=== PATIENT | male | born 1930 | race Caucasian/White ===

== ENCOUNTER 2018-03-24 09:32 | Inpatient (IN) | payer MEDICARE, BC ==
[~2018-03-24] VITALS: Ht 188 cm; Wt 80.1 kg
[2018-03-24] VITALS (7 sets, daily range): BP systolic 96–187; BP diastolic 56–96; BMI 23.8; BMI 16.7
--- NOTE | ~2018-03-24 | HEMODYNAMI ---
PATIENT:CHRISTEL HOUSE MEDICAL RECORD: [id number] : 34 [facility] [id number] ADMISSION DATE: 03/24/18 Generatedon:03/26/201812:27 Patient name: CHRISTEL HOUSE Patient #: [id number] SSN: : [id number] Date of study: 03/26/2018 Page: Of Hemodynamic Procedure Report Patient Data Patient Demographics Procedure consent was obtained First Name: CHRISTEL Gender: Male Last Name: LACY : 1930 [facility] Initial: C Age: 88 year(s) Patient #: [id number] Race: Unknown Additional ID: [id number] Contact details Address: [facility] State: [place] City: [place] Zip code: [address] Past Medical History Allergies: No known allergies Admission Admission Data Admission Date: 03/24/2018 Admission Time: 13:56 Room #: D.2115 Procedure Procedure Types Cath Procedure Diagnostic Procedure LHC LHC w/Coronaries w/Grafts FFR/IVUS Intra-Coronary IVUS Initial PCI Procedure Coronary Stent Coronary Stent Initial Procedure Description Procedure Date Procedure Date: 03/26/2018 Procedure Start Time: 12:09 Procedure End Time: 12:25 Procedure Staff Name Function Ronnie Stevens MD Performing Physician Vasyl Caputo RT Monitor Belinda New RN Nurse Rj Jane RT Scrub Louis Villagran RN Treating Engineer Helper Procedure Data Cath Procedure Fluoroscopy Diagnostic fluoroscopy Total fluoroscopy Time: 4.2 time: 4.2 min min Diagnostic fluoroscopy Total fluoroscopy dose: 433 dose: 433 mGy mGy Contrast Material Contrast Material Type Amount (ml) Isovue 300 154 Entry Location Entry Primary Successful Side Size Upsize Upsize Entry Closure Succes sful Closure Location (Fr) 1 (Fr) 2 (Fr) Remarks Device Remarks Femoral Right 5 Fr 6 Fr Exoseal artery Short Diagnostic catheters Device Type Used For End Catheter Placement MULTIPACK Pigtail 5 Fr LV Angiography catheter MULTIPACK JL 4.0 5Fr Left Coronary catheter Angiography MULTIPACK 3DRC 5Fr Right Coronary catheter Angiography DIAGNOSTIC AR MOD 5Fr Right Coronary Catheter ([id number]) Angiography Procedure Complications No complications Procedure Medications Medication Administration Route Dosage Versed I.V. 2 mg Fentanyl I.V. 50 mcg 0.9% NaCl I.V. 100 ml/hr Oxygen etCO2 Nasal cannula 2 l/min Lidocaine 2% added to field 20 Heparin Flush Bag added to field 2 bags (1000units/500ml NS) Heparin Bolus I.V. 4000 units Integrilin (Bolus I.V. 7.3 ml 2mg/ml) Plavix P.O. 600 mg Versed I.V. 2 mg Hemodynamics Rest Heart Rate: 92 (bpm) Snapshots Pre Cath Intra NCS Post Cath Vital Signs Time Heart Resp SPO2 etCO2 NIBP (mmHg) Rhythm Pain Sedation Rate (ipm) (%) (mmHg) Status Level (bpm) 11:57:08 91 20 93 26 126/81(101) A-Fib 0 (11) 10(A) , No pain 12:01:18 93 15 94 30 120/70(89) A-Fib 0 (11) 10(A) , No pain 12:06:41 96 22 97 30 110/75(95) A-Fib 0 (11) 10(A) , No pain 12:10:37 98 20 98 34.6 124/84(91) A-Fib 0 (11) 10(A) , No pain 12:14:39 87 16 97 24.5 120/72(100) A-Fib 0 (11) 9(A) , No pain 12:18:42 103 15 97 29.3 108/71(94) A-Fib 0 (11) 9(A) , No pain 12:23:15 106 21 98 32.4 101/70(92) A-Fib 0 (11) 10(A) , No pain Medications Time Medication Route Dose Verified Delivered Reason Notes Effectiveness by by 12:04:17 Versed I.V. 2 mg Ronnie Belinda for sedation Hilda New RN 12:04:28 Fentanyl I.V. 50 Ronnie Belinda for sedation mcg Hilda New RN 12:10:17 Versed I.V. 2 mg Ronnie Belinda for sedation Hilda New RN 12:12:53 0.9% NaCl I.V. 100 Ronnie Belinda used for ml/hr Hilda New director of payroll 12:13:05 Oxygen etCO2 2 Ronnie Belinda used for Nasal l/min Hilda New procedure cannula RN 12:15:19 Lidocaine 2% added 20ml Ronnie Ronnie for local to vial Hilda Stevens MD anesthetic field 12:15:25 Heparin Flush added 2 Ronnie Ronnie used for Bag to bags Hilda Stevens MD procedure (1000units/500ml field NS) 12:18:57 Heparin Bolus I.V. 4000 Ronnie Belinda for verif ied units Hilda New anticoagulation with Dr. INGE Stevens 12:19:24 Integrilin I.V. 7.3 Ronnie Belinda used for waste d (Bolus 2mg/ml) ml Hilda New procedure 2.7mL RN 12:19:39 Plavix P.O. 600 Ronnie Belinda for mg Hilda New antiplatelet RN therapy Procedure Log Time Note 11:25:48 Louis Villagran RN sent for patient. Start room use. 11:37:49 Time tracking: Regular hours (M-F 7:00 - 5:00) 11:37:54 Plan of Care:Hemodynamics will remain stable., Cardiac rhythm will remain stable., Comfort level will be maintained., Respiratory function will remain adequate., Patient/ family verbilizes understanding of procedure., Procedure tolerated without complication., Recovers from procedure without complications.. 11:46:45 Patient received from Med II to CCL 3 Alert and oriented. Tansferred to table in Supine position. 11:46:47 Warm blankets applied, and fauzia hugger turned on for patient comfort. 11:46:47 Correct patient and procedure confirmed by team. 11:46:49 Signed procedure consent form obtained from patient. 11:46:49 ECG and BP/O2 sat monitors applied to patient. 11:56:12 Vital chart was started 12:02:58 Baseline sample Acquired. 12:03:01 Rhythm: sinus rhythm 12:03:02 Full Disclosure recording started 12:03:06 H&P Date Dictated: 03/26/2018 Within 30 days and on chart.. 12:03:07 Pre-procedure instructions explained to patient. 12:03:07 Pre-op teaching completed and patient verbalized understanding. 12:03:17 Family unavailable. 12:03:22 Patient NPO since Midnight. 12:03:30 Patient allergic to No known allergies 12:03:32 Is the patient allergic to Iodine/contrast media? No. 12:03:51 Is patient on blood thinner?Yes 12:03:56 Patient diabetic? Yes. 12:03:57 If diabetic: On Metformin? Yes 12:04:00 If on Metformin: Last Dose? 03/24/2018 12:04:02 ----Pre-sedation anethsthesia assessment.---- 12:04:04 Previous problem with sedation/anesthesia? No ? 12:04:06 Snore? Yes 12:04:08 Sleep apnea? No 12:04:10 Deviated septum? No 12:04:11 Opens mouth fully? Yes 12:04:13 Sticks out tongue? Yes 12:04:15 Airway obstruction? No ? 12:04:17 Versed 2 mg I.V. was administered by Belinda New RN; for sedation; 12:04:17 Dentures? No ? 12:04:20 Pre procedure: right dorsailis pedis pulse 2+ Normal; easily identifiable; not easily obliterated 12:04:25 Patient pain scale 0/10 ?. 12:04:28 Fentanyl 50 mcg I.V. was administered by Belinda New RN; for sedation; 12:04:28 IV patent on arrival in left antecubital with 0.9% NaCl at 10ml/hr. 12:04:33 Lab results completed and on chart. 12:04:36 Right groin area was prepped with chlora-prep and draped in sterile fashion 12:04:37 Alarms reviewed by R. N. 12:04:37 Sharps counted by scrub and verified by R.N. 12:04:38 Physician arrived 12:04:39 --------ALL STOP TIME OUT------ 12:04:39 Final Timeout: patient, procedure, and site verified with staff and physician. All members of the team are in agreement. 12:04:41 Right groin site verified by team. 12:04:45 Fire Safety Assessment: A--An alcohol-based skin anteseptic being used preoperatively., C--Open oxygen or nitrous oxide is being used., D--An ESU, laser, or fiber-optic light is being used. 12:04:48 Physical assessment completed. ASA score P 2 - A patient with mild systemic disease as per Ronnie Stevens MD. 12:04:52 Sedation plan: IV Moderate Sedation Medication:Versed, Fentanyl 12:04:56 Use device set Femoral Dx 12:04:57 ACIST Syringe (49641) opened to sterile field. 12:04:58 Bag Decanter (2002S) opened to sterile field. 12:04:58 Medline Cath Pack ([id number]) opened to sterile field. 12:04:59 DIAGNOSTIC WIRE .035 260cm J wire (919392) opened to sterile field. 12:05:00 ACIST Hand Control (91908) opened to sterile field. 12:05:01 ACIST Manifold (16675) opened to sterile field. 12:05:01 DIAGNOSTIC Multipack 5Fr catheter set (OM2235) opened to sterile field. 12:05:01 Tegaderm 4 x 4 (1626W) opened to sterile field. 12:05:04 SHEATH 5FR [place] (EKG607) opened to sterile field. 12:07:44 Procedure started. 12:09:14 Zero performed for pressure channel P1 12:09:18 Zero performed for pressure channel P1 12:09:23 Zero performed for pressure channel P1 12:09:35 Local anesthetic to right femoral artery with Lidocaine 2% by Ronnie Stevens MD.INITIAL ACCESS ONLY 12:09:43 A 5 Fr sheath was inserted into the Right Femoral artery 12:09:49 A MULTIPACK Pigtail 5 Fr catheter was advanced over the wire and used for LV Angiography. 12:09:52 LV angiography performed. 12:09:54 LV gram done using COSTELLO 12:09:55 LV hemodynamics recorded. 12:10:03 EF : 20 % 12:10:05 Catheter removed. 12:10:07 Zero performed for pressure channel P1 12:10:16 A MULTIPACK JL 4.0 5Fr catheter was advanced over the wire and used for Left Coronary Angiography. 12:10:17 Versed 2 mg I.V. was administered by Belinda New RN; for sedation; 12:10:21 LCA angiography performed. 12:10:59 Catheter removed. 12:11:31 A MULTIPACK 3DRC 5Fr catheter was advanced over the wire and used for Right Coronary Angiography. 12:11:33 Zero performed for pressure channel P1 12:11:44 RCA angiography performed. 12:11:48 Catheter removed. 12:11:58 Procedure type changed to Cath procedure, Diagnostic procedure, LHC, LHC w/Coronaries w/Grafts, FFR/IVUS, Intra-Coronary IVUS Initial, PCI procedure, Coronary Stent, Coronary Stent Initial 12:12:53 0.9% NaCl 100 ml/hr I.V. was administered by Belinda New RN; used for procedure; 12:13:05 Oxygen 2 l/min etCO2 Nasal cannula was administered by Belinda New RN; used for procedure; 12:14:00 A DIAGNOSTIC AR MOD 5Fr Catheter ([id number]) was advanced over the wire and used for Right Coronary Angiography. 12:14:04 RCA angiography performed. 12:14:14 SVG to Circ angiography performed. 12:14:55 SVG to RCA angiography performed. 12:15:19 Lidocaine 2% 20ml vial added to field was administered by Ronnie Stevens MD; for local anesthetic; 12:15:25 Heparin Flush Bag (1000units/500ml NS) 2 bags added to field was administered by Ronnie Stevens MD; used for procedure; 12:16:01 GUIDE 6FR XBLAD 4.0 catheter ([id number]) opened to sterile field. 12:16:15 Sheath upsized to a 6 Fr Short. 12:16:27 6 Fr XBLAD 4 guide catheter was inserted over the wire 12:16:39 CPTES wire advanced. 12:16:44 FFR/IVUS 12:16:44 FFR/IVUS 12:16:45 IVUS catheter advanced over wire. 12:16:46 IVUS pass to LAD lesion performed. 12:18:57 Heparin Bolus 4000 units I.V. was administered by Belinda New RN; for anticoagulation; verified with Dr. Stevens 12:19:24 Integrilin (Bolus 2mg/ml) 7.3 ml I.V. was administered by Belinda New RN; used for procedure; wasted 2.7mL 12:19:39 Plavix 600 mg P.O. was administered by Belinda New RN; for antiplatelet therapy; 12:20:25 IVUS catheter removed over wire. 12:21:40 Place stent Inflation Number: 1 A INTEGRITY RX 3.5 x 30 stent ([id number]) was prepped and advanced across the Mid LAD. The stent was deployed at 17 TEA for 0:10 (min:sec). 12:21:43 [place] Dundee Eagleye IVUS Catheter (05770Z) opened to sterile field. 12:21:46 SHEATH 6FR [place] (SFG052) opened to sterile field. 12:21:46 INFLATOR Merit BasixCompak (UD0558) opened to sterile field. 12:21:46 CHOICE PT Extra Support 182cm wire ([id number]) opened to sterile field. 12:21:53 EXOSEAL 6Fr (EX600) opened to sterile field. 12:22:58 Stent catheter was removed intact over wire. 12:22:59 Wire removed. 12:22:59 Guide catheter removed. 12:23:06 Sheath removed intact; hemostasis achieved with Exoseal to the Right Femoral artery. 12:23:08 Procedure ended.(Physican Out) 12:23:19 Fluoroscopy time 04.20 minutes. 12:23:26 Fluoroscopy dose: 433 mGy 12:23:26 Flurop Dose total: 433 12:23:34 Contrast amount:Isovue 300 154ml. 12:23:36 Sharps counted by scrub and verified by R.N. 12:23:37 Insertion/operative site no bleeding no hematoma. 12:23:40 Post-op/insertion site Right Femoral artery dressed using a 4 x 4 and Tegaderm. 12:23:43 Post right femoral artery:stable 12:23:55 Post Procedure Pulses reassessed and unchanged 12:24:05 Post procedure rhythm: sinus rhythm 12:24:07 Post procedure instruction explained to patient.Patient verbalizes understanding. 12:24:08 Procedure and supply charges have been captured, reviewed, submitted and are correct. 12:24:13 Procedure Complication : No complications 12:25:12 Vital chart was stopped 12:25:14 See physician's report for complete and final results. 12:25:32 Report given to PCU. 12:25:36 Patient transfered to PCU with Bed. 12::41 Procedure ended. 12:: Full Disclosure recording stopped 12:25:44 End room use (Document Last) Intervention Summary Intervention Notes Time ActionType Lesion and Equipment Action# Pressure Duration Attributes Used 12:21:40 Place stent Mid LAD INTEGRITY RX 1 17 00:10 3.5 x 30 stent ([id number]) Device Usage Item Name Manufacture Quantity Catalog Number Hospital Part Current Mini mal Lot# / Charge Number Stock Stock Serial# Code ACIST Acist 1 80099 956062 684989 490305 20 Syringe Medical (23992) Systems Inc Bag Decanter Microtek 1 799339 69595 949653 5 () Medical Inc. Medline Cath Medline 1 [id number] 544864 80348 565187 5 Pack ([id number]) DIAGNOSTIC St Chirag 1 454952 746939 608110 605564 30 WIRE .035 260cm J wire (111034) ACIST Hand Acist 1 36878 424533 414204 527624 5 Control Medical (43873) Systems Inc ACIST Acist 1 09313 412749 809467 928250 5 Manifold Medical (33054) Systems Inc DIAGNOSTIC Cardinal 1 HK8444 909055 30967 491133 30 Multipack Health 5Fr catheter set (ZU7667) Tegaderm 4 x 3M 1 1626W 610320 264450 600857 5 4 (1626W) SHEATH 5FR Terumo 1 UEV894 056782 446027 089961 5 [place] (BWJ917) MULTIPACK Cardinal 1 833299 5 Pigtail 5 Fr Health catheter MULTIPACK JL Cardinal 1 412579 5 4.0 5Fr Health catheter MULTIPACK Cardinal 1 272603 5 3DRC 5Fr Health catheter DIAGNOSTIC Cardinal 1 161327N 302487 544599 545284 15 AR MOD 5Fr Health Catheter (266884Q) GUIDE 6FR Cardinal 1 [id number] 710026 306198 203343 3 XBLAD 4.0 Health catheter (28061996) INTEGRITY RX Medtronic 1 [id number] 261812 263628 938962 5 [id number] 3.5 x 30 stent ([id number]) [place] 1 03745N 324620 003982 956599 8 [place] Eagleye IVUS Catheter (01645C) SHEATH 6FR Terumo 1 RNT062 515285 100123 509421 40 [place] (QVG427) INFLATOR Merit 1 WK6421 224749 698477 349853 15 [facility] Medical BasixCompak (LS2034) CHOICE PT [place] 1 [id number] 410369 372144 598763 5 Extra Scientific Support 182cm wire ([id number]) EXOSEAL 6Fr Cardinal 1 EX600 821650 866281 768792 10 (EX600) Health Signature Audit [place] Stage Time Signature Unsigned Intra-Procedure 03/26/2018 Vasyl Caputo RT(R) 12:27:33 PM Signatures Monitor : Vasyl Caputo RT Signature : Date : Time : [id number] [place] [address]
[~2018-03-24 09:32] MED LIST: ACETAMINOPHEN500 M1 PO; BAYER CHEWABLE81 MG PO; COREG6.25 MG PO; COUMADIN4 MG PO; FELDENE20 MG PO; JANTOVEN2 MG PO; K-TAB10 MEQ PO; LANOXIN125 MCG PO; LASIX40 MG PO; LEVAQUIN500 MG PO; VITAMIN B COMPL1 TAB PO; VITAMIN D5000 UNIT PO; ZYRTEC10 MG PO
--- NOTE | 2018-03-24 09:40 | NUR ---
PATIENT PLACED IN GOWN, CALL LIGHT WITHIN REACH, BEDSIDE TABLE WITHIN REACH. PLACED ON BECK OPERATOR AND OXYGEN 2/L/NC FOR A SAT OF 93%. PATIENT IS A WAKE AND ALERT, RESPIRATIONS ARE MILDLY LABORED WITH PURSED LIP BREATHING. COLOR IS WNL FOR RACE. GIVEN MULTIPLE WARM BLAKETS. NO OTHER NEEDS NOTED. UPDATED ON DENISE OF CARE AND DELAYS IN CARE. WILL CONTINUE TO MONITOR.
[2018-03-24] MEDS ORDERED: PRESERVISION PO (09:43)
[2018-03-24] MEDS ORDERED: PROBIOTIC BLEN1 EACH (09:43)
[2018-03-24] MEDS ORDERED: ALPHA LIPOIC ACID PO (09:44)
[2018-03-24] MEDS ORDERED: COREG 3.1253.125 MG PO (09:45)
--- NOTE | 2018-03-24 09:48 | NUR ---
FRIEND AT BEDSIDE. PATIENT STATES HIS WAS PLACED IN AN INPATIENT FACILITY RECENTLY AND HAS BEEN LIVING ALONE. HE DOES NOT HAVE A PCP.
[2018-03-24 10:11] LABS: BASOPHILS 0.7 % (0-2); HEMATOCRIT 48.3 % (42.0-54.0); HEMOGLOBIN 16.2 g/dL (13.5-17.5); IMMATURE GRANULOCYTES 0.1 % (0-5); LYMPHOCYTES 17.7 % (15-50); MCH 30.2 pg (26.0-34.0); MCHC 33.5 g/dL (31.0-37.0); MCV 89.9 fL (80.0-100.0); MEAN PLATELET VOLUME 11.2 fL (7.4-10.4); NEUTROPHILS 71.5 % (40-80); PLATELET COUNT 179 10x3/uL (130-400); RBC 5.37 10x6/uL (4.20-6.10); RDW 16.7 % (11.5-14.5); WBC 8.8 10x3/uL (4.8-10.8)
[2018-03-24 10:15] LABS: INR 1.19 (0.85-1.17); PROTIME 14.6 SECONDS (11.6-15.0)
[2018-03-24 10:16] LABS: D-DIMER-QUANTITATIVE 1.74 ug/mLFEU (0.20-0.54)
--- NOTE | 2018-03-24 10:30 | NUR ---
PATIENT UNABLE TO URINATE IN URINAL AND REQUESTING TO GO TO THE RESTROOM FOR BM. ASSISTED PATIENT TO RESTROOM.
[2018-03-24 10:33] LABS: ALBUMIN 3.5 g/dL (3.4-5.0); ANION GAP 11.7 mmol/L (8-16); BILIRUBIN - TOTAL 1.23 mg/dL (0.2-1.3); CALCIUM 9.1 mg/dL (8.5-10.1); CARBON DIOXIDE 28.7 mmol/L (21.0-32.0); CREATININE - SERUM 1.2 mg/dL (0.6-1.3); POTASSIUM - SERUM 4.4 mmol/L (3.5-5.1); PROTEIN - SERUM 7.1 g/dL (6.4-8.2)
[2018-03-24 10:50] LABS: TROPONIN-I 0.068 ng/mL (0.000-0.060)
--- NOTE | 2018-03-24 10:51 | NUR ---
ELEVATED TROPONIN CALLED BY [employer], RESULT 0.068. EDM NOTIFIED.
--- NOTE | 2018-03-24 11:30 | NUR ---
PATIENT IS AWAKE AND ALERT, RESPIRATIONS EVEN AND UNLABORED. NO NEEDS NOTED. UPDATED ON PLAN OF CARE AND DELAYS IN CARE. WILL CONTINUE TO MONITOR.
--- NOTE | 2018-03-24 12:02 | NUR ---
PATIENT ASSISTED TO RESTROOM FOR BM. STATES WHEN HE WENT TO THE RESTROOM EARLIER, HE URINATED "A BUNCH." PATIENT GIVEN A BEDSIDE URINAL TO COLLECT URINE. UPDATED ON PLAN OF CARE AND DELAYS IN CARE. WILL CONTINUE TO MONITOR.
--- NOTE | 2018-03-24 12:16 | NUR ---
PATIENT TO CT VIA STRETCHER.
--- NOTE | 2018-03-24 13:35 | NUR ---
URINE OUTPUT 1500 MLS.
--- NOTE | 2018-03-24 14:30 | NUR ---
PATIENT TO RESTROOM. NO NEEDS NOTED. UPDATED ON PLAN OF CARE AND DELAYS IN CARE.
--- NOTE | 2018-03-24 18:17 | NUR ---
SCDS APPLIED TO BILATERAL LOWER EXTREMITIES.
--- NOTE | 2018-03-24 18:18 | NUR ---
16 FR RANDOLPH CATHETER INSERTED VIA STERILE TECHNIQUE. 350ML CLEAR YELLOW URINE RECEIVED UPON INSERTION OF RANDOLPH CATHETER. URINE TO DRAINAGE BAG VIA GRAVITY. PATIENT TOLERATED INSERTION OF RANDOLPH CATHETER WELL. ATTEMPTED TO SECURE RANDOLPH WITH STAT LOCK, RANDOLPH WILL NOT FIT IN STAT LOCK. CHARGE NURSE NOTIFIED AND WILL RETREIVE DIFFERENT STAT LOCK. CALL LIGHT WITHIN REACH. BED IN LOW POSITION. CALL LIGHT WITHIN REACH. CONSUMIN PM MEAL AT THIS TIME.
--- NOTE | 2018-03-24 18:56 | NUR ---
RECIEVED UP IN BED WITH EYES OPEN AND TV IN. ALERT AND ORIENTED X4. F/C INTAQCT WITH CLEAR YELLOW URINE DRAINING TO BEDSIDE DRAINAGE BAG. DENIES ANY NEEDS AT THIS TIME.
--- NOTE | 2018-03-24 22:54 | NUR ---
REFUSES FOEY CATH. TOLD SUEDING AND BUFFING MACHINE OPERATOR THAT HE WAS GOING TO PULL IT OUT HIMSELF. D/C'D RANDOLPH WITH SMALL BLOOD CLOTS IN TUBING. PT HAD BEEN YELLING OUT FOR SOMEONE TO HELP HIM. AND FOR SOMEONE TO DO SOMETHING. UNABLE TO REDIRECT TO THE NEED FOR THE F/C. ASKED HIM TO PLEASE USE THE URINAL AND NOT TO GET UP. BEDSIDE COMMODE IN PLACE. PT GAVE VERBAL AGREEMENT TO NOT GET UP AND USE URINAL.
--- NOTE | 2018-03-25 01:20 | NUR ---
PULLED HEART MONITOR OFF AND DISCONNECTED DOBUTAMINE DRIP AND PLACE IV LINE IN URINAL. STATED "I'M LEAVING AND YOU CANT STOP ME". EXPLAINED THAT HE WOULD HAVE TO SIGN AMA. PT AGREED. NOTIFIED DR. BANEGAS AND DR. DIAZ. UNABLE TO REACH FRIEND TO PICK HIM UP. FINALLY HE CALMED DOWN AND ALLOWED IV TO BE RECONNECTED WITH NEW TUBING AND TELEMETRY MONITER PUT BACK ON. STATED "I'LL STAY AND YOU CAN HOOK ME BACK UP". APOLIGIZED FOR BEING UPSET.
[2018-03-25 05:02] VITALS: BP 129/63
--- NOTE | 2018-03-25 06:03 | NUR ---
PLEASANT AND COOPERATIVE THIS MORNING. SMILING AND TALKATIVE. DENIES ANY PAIN OR NEEDS AT THIS TIME. CONTINUES TO USE URINAL.
[2018-03-25 06:07] LABS: BASOPHILS 0.6 % (0-2); EOSINOPHILS 1.3 % (0-7); HEMATOCRIT 41.5 % (42.0-54.0); HEMOGLOBIN 13.7 g/dL (13.5-17.5); IMMATURE GRANULOCYTES 0.1 % (0-5); LYMPHOCYTES 17.4 % (15-50); MCH 29.4 pg (26.0-34.0); MCV 89.1 fL (80.0-100.0); MEAN PLATELET VOLUME 11.8 fL (7.4-10.4); MONOCYTES 10.5 % (2-11); NEUTROPHILS 70.1 % (40-80); PLATELET COUNT 147 10x3/uL (130-400); RBC 4.66 10x6/uL (4.20-6.10); RDW 16.7 % (11.5-14.5)
[2018-03-25 06:29] LABS: ANION GAP 13.7 mmol/L (8-16); CARBON DIOXIDE 27.1 mmol/L (21.0-32.0); CREATININE - SERUM 1.1 mg/dL (0.6-1.3); POTASSIUM - SERUM 3.8 mmol/L (3.5-5.1)
[2018-03-25 06:45] LABS: INR 1.31 (0.85-1.17); PROTIME 15.7 SECONDS (11.6-15.0)
[2018-03-25 07:03] VITALS: BP 107/82
--- NOTE | 2018-03-25 07:30 | NUR ---
RECEIVED PT IN BED AAOX4 RESP UNLABORED DEINIES ANY NEEDS OR DISCOMFORT AT THIS TIME
[2018-03-25 12:34] VITALS: BMI 23.7
[2018-03-25 12:53] VITALS: BP 121/77
--- NOTE | 2018-03-25 17:15 | NUR ---
FAWN PT'S IV IN A URINAL DISCONNECTED FROM IV SITE PT STATED HE TOOK IT LOOSE BECAUSE HE WANTED IT LOOSE CHANGE OUT TUBING AND FLUIDS PT REFUSED TO HAVE IT RECONNECTED
[2018-03-25 17:47] VITALS: BP 113/63
--- NOTE | 2018-03-25 19:12 | NUR ---
RECIEVED UP IN BED WITH EYES OPEN. REPORTED BY OFF GOING PT REFUSING IV. SPOKE WITH PT ATTEMPTING TO EDUCATE ON NEED FOR MEICATION UNSUCESSFUL. IV TO LEFT FA SL.. PACEMAKER TO LEFT CHEST. TELEMETRY IN PLACE. WILL CONT. POC.
--- NOTE | 2018-03-25 19:56 | NUR ---
PULLED TELEMETRY OFF AND REFUSES TO PUT IT BACK ON.
[2018-03-25 21:03] VITALS: BP 115/59
[2018-03-26 01:03] VITALS: BP 110/74
[2018-03-26 06:21] VITALS: BP 129/75
[2018-03-26 06:49] LABS: INR 1.24 (0.85-1.17)
[2018-03-26 06:53] LABS: BASOPHILS 0.3 % (0-2); EOSINOPHILS 0.8 % (0-7); HEMATOCRIT 45.2 % (42.0-54.0); HEMOGLOBIN 14.9 g/dL (13.5-17.5); IMMATURE GRANULOCYTES 0.2 % (0-5); LYMPHOCYTES 9.8 % (15-50); MCH 29.9 pg (26.0-34.0); MCV 90.6 fL (80.0-100.0); MEAN PLATELET VOLUME 11.9 fL (7.4-10.4); MONOCYTES 9.9 % (2-11); PLATELET COUNT 161 10x3/uL (130-400); RBC 4.99 10x6/uL (4.20-6.10); RDW 16.7 % (11.5-14.5)
[2018-03-26 06:54] LABS: ANION GAP 11.4 mmol/L (8-16); CALCIUM 9.1 mg/dL (8.5-10.1); CREATININE - SERUM 1.2 mg/dL (0.6-1.3); POTASSIUM - SERUM 3.5 mmol/L (3.5-5.1)
[2018-03-26 06:58] LABS: CARBON DIOXIDE 34.1 mmol/L (21.0-32.0)
[2018-03-26 07:08] LABS: WBC 11.1 10x3/uL (4.8-10.8)
--- NOTE | 2018-03-26 07:30 | NUR ---
PT VERY ARGUMENTIVE THIS MORNING REFUSING DOBUTAMINE GTT SAYS HE IS GOING HOME REFUSES TO GET IN A GOWN TO GO TO [facility] STATES THEY CAN HELP ME UNDRESS WHEN I GET OVER THERE. RESP UNLABORED SKIN W/D PALE IN COLOR LFA SALINE LOCK INTACT SITE WITHOUT REDNESS OR EDEMA WILL CONTINUE TO MONITOR
[2018-03-26 09:06] VITALS: BP 123/79
--- NOTE | 2018-03-26 10:30 | NUR ---
PT FOUND IN FLOOR LYING ON BACK ASSISTED BACK TO BED ABRASION NOTED TO RT KNEE CLEANSED WITH WOUND CLEANSER AND APPLIED DRY DRSG RT ELBOW WITH ABRASION CLEANSED WITH WOUND CLEANSE AND APPLIED DRG DRSG C/O OF PAIN TO RT ELBOW B/P 133/77 P 96 R 18 O2 98% PANFILO BROWN APN WITH DR WEIR NOTIFIED NEW ORDERS RECEIVED
--- NOTE | 2018-03-26 12:15 | NUR ---
PT TO WATER SOFTENER SERVICE SUPERVISOR VIA BED
--- NOTE | 2018-03-26 13:00 | NUR ---
RECEIVED PT BACK TO ROOM VIA BED SEDATED VSS PPPX2 DRSG C/D/I
[2018-03-26 13:06] VITALS: BP 133/77
[2018-03-26 19:11] VITALS: BP 132/75
--- NOTE | 2018-03-26 19:14 | NUR ---
RECIEVED LAYING IN BED WITH EYES CLOSED. AROUSES WITH VERBAL STIMULI. F/C PLACED PER ORDERS WITH SMALL AMT OF BLOODY URINE. PLEASANT AND TALKATIVE. IV TO LEFT FA SL.. LUNG SOUNDS CRACKLESW AND RALES BILAT. CONT TO REFUSE LASIX PER OFFGOING . WILL CONT. TO OBSERVE.
--- NOTE | 2018-03-26 20:11 | NUR ---
PT BECAME MORE LETHARGIC AND O2 SAT 86%. PT PULLS O2 OFF FREQUENTLY. NOTIFIED DR. DUFF WITH NEW ORDER FOR 80MG LASIX IV X 1 NOW AND HOLD 2200 DOSE. CXR..LASIX GIVEN AND INITIAL IV INFILTRATED RESTARTED BY MARIA E BOUCHER AND LASIX GIVEN IN NEW SITE TO LA. SON HERE EARLIER AND STATED " HE'S BEEN LIKE THIS ALL MY LIFE AAND I CANT TAKE THIS" SON LEFT AND GAVE THIS NURSE HIS NUMBER IN CASE OF ANY CHANGES. WILL OBSERVE OUTPUT.
[2018-03-26 22:27] VITALS: BP 101/61
[2018-03-27] VITALS (24 sets, daily range): BP systolic 76–113; BP diastolic 48–71; Ht 188 cm; Wt 80.1 kg
--- NOTE | 2018-03-27 00:53 | NUR ---
PT B/P REPORTED 85/49, PULSE 109 REP. 31 O2 SAT 83% ON [address] DUFF NOTIFIED AND GAVE NEW ORDERS TO TRANSFER TO UNIT, PULMOLOGIST CONSULT AND START DOBUTAMINE DRIP IN ICU.
--- NOTE | 2018-03-27 00:55 | NUR ---
REPORT GIVEN TO ICU NURSE AND PT TRANSFERED TO 2310.
[2018-03-27 00:59] LABS: ANION GAP 13.8 mmol/L (8-16); CARBON DIOXIDE 29.3 mmol/L (21.0-32.0); CREATININE - SERUM 1.8 mg/dL (0.6-1.3); MAGNESIUM - SERUM 1.6 mg/dL (1.8-2.4); POTASSIUM - SERUM 4.1 mmol/L (3.5-5.1)
--- NOTE | 2018-03-27 01:00 | NUR ---
RECEIVED PT FROM FLOOR. PT ATTACHED TO MONITORS. ORDERS COMPLETED. PT PLACED ON BIPAP PER ORDERS. NO SIGNS OF ACUTE DISTRESS. WILL CONTINUE TO MONITOR.
--- NOTE | 2018-03-27 02:00 | NUR ---
PAGED DR DUFF REGARDING PT'S LOW BP. DOES NOT WANT TO TREAT ANY FURTHER AT THIS TIME. NO FURTHER NEEDS NOTED. NO SIGNS OF ACUTE DISTRESS. WILL CONTINUE TO MONITOR.
--- NOTE | 2018-03-27 03:05 | NUR ---
REASSESSMENT COMPLETED, SEE FLOWSHEET. NO ACUTE CHANGES NOTED AT THIS TIME. NO SIGNS OF ACUTE DISTRESS. BP STILL REMAINS ON THE LOW SIDE, CURRENT BP IS 91/50. WILL CONTINUE TO MONITOR CLOSELY.
[2018-03-27 04:47] LABS: BASOPHILS 0.1 % (0-2); EOSINOPHILS 0 % (0-7); HEMATOCRIT 43.3 % (42.0-54.0); IMMATURE GRANULOCYTES 0.2 % (0-5); LYMPHOCYTES 4.3 % (15-50); MCH 29.6 pg (26.0-34.0); MCHC 32.3 g/dL (31.0-37.0); MCV 91.5 fL (80.0-100.0); MEAN PLATELET VOLUME 11.7 fL (7.4-10.4); MONOCYTES 5.9 % (2-11); NEUTROPHILS 89.5 % (40-80); RBC 4.73 10x6/uL (4.20-6.10); RDW 16.8 % (11.5-14.5)
[2018-03-27 04:56] LABS: ANION GAP 12.2 mmol/L (8-16); CALCIUM 8.6 mg/dL (8.5-10.1); CARBON DIOXIDE 33.5 mmol/L (21.0-32.0); CREATININE - SERUM 1.6 mg/dL (0.6-1.3); POTASSIUM - SERUM 3.7 mmol/L (3.5-5.1)
[2018-03-27 04:57] LABS: PLATELET COUNT 124 10x3/uL (130-400); WBC 14.2 10x3/uL (4.8-10.8)
[2018-03-27 05:03] LABS: INR 1.47 (0.85-1.17); PROTIME 17.3 SECONDS (11.6-15.0)
--- NOTE | 2018-03-27 05:05 | NUR ---
PT IS RESTING IN BED ON THE BIPAP. NO ACUTE CHANGES NOTED. NO SIGNS OF ACUTE DISTRESS. WILL CONTINUE TO MONITOR.
--- NOTE | 2018-03-27 07:06 | NUR ---
REPORT RECEIVED. ASSESSMENT COMPLETE PER FLOW SHEET. VSS. NO NEW CHANGES WILL CONTNIUE TO MONITOR
--- NOTE | 2018-03-27 09:07 | OP ---
PATIENT NAME: CHRISTEL HOUSE MEDICAL RECORD: [id number] :34 LOCATION:D[facility] D.2310 ADMISSION DATE:03/24/18 SURGEON: AMINTA DUFF MD DATE OF OPERATION: 03/26/2018 DATE OF SERVICE: 03/26/2018 PROCEDURES: 1. PTCA stent LAD. 2. Intravascular ultrasound. 3. Left heart catheterization. 4. Selective coronary angiography. 5. Vein graft angiography. 6. BILLINGS angiography. 7. Left ventriculogram. INDICATION: Angina, coronary artery disease, heart failure and cardiomyopathy. PROCEDURE IN DETAIL: After informed consent was obtained and after a detailed description of the risks, benefits as well as alternative therapies, the patient elected to proceed with angiogram and angioplasty. The right femoral area was prepped and draped in normal sterile fashion. Right femoral artery was cannulated via modified Seldinger technique with placement of 6-Italian sheath. All catheters exchanged through this sheath. FINDINGS: The left ventriculogram was performed in standard 30-degree COSTELLO view reveals global hypokinesis throughout all segments. Overall ejection fraction in the 30% range. SELECTIVE CORONARY ANGIOGRAPHY: 1. Left main is with no significant angiographic disease. 2. Left anterior descending has greater than 80% proximally confirmed by intravascular ultrasound. 3. BILLINGS to the LAD is closed. 4. Left anterior descending diagonal has 100% stenosis proximally. 5. Vein graft to the diagonal was patent. Distal diagonal is patent. 6. The left circumflex is totally occluded in the mid vessel. 7. Vein graft to circumflex is patent. The distal circumflex is patent. 8. Right coronary is totally occluded proximally. 9. Vein graft to the right coronary is patent. Distal right coronary is widely patent. PTCA STENT OF THE LAD: The stent used was a 3.5 x 30 mm Integrity. Result was 0% residual stenosis. OVERALL IMPRESSION: Successful percutaneous transluminal coronary angioplasty stent of the left anterior descending going from greater than 80% initial stenosis with a closed left internal mammary artery graft to 0% residual stenosis. TRANSINT:[id number] Voice Confirmation ID: [id number] DOCUMENT ID: [id number] OPERATIVE REPORT [id number] LACYCHRISTEL JEFFREY MD at 0907 CC: [id number] DICTATION DATE: 03/26/18 1231 CUSTOMER ACCOUNT MANAGER: 03/26/18 1255 ADM IN [facility] [address] [facility], [facility]
--- NOTE | 2018-03-27 09:18 | NUR ---
NUTRITION F/U NURSING REPORTS PT WITH 75% INTAKE BREAKFAST THIS AM. SPEECH THERAPY CONSULT PENDING. RD FOLLOWING
--- NOTE | 2018-03-27 09:20 | NUR ---
FAMILY AND DR GRIER AT BEDSIDE. GIVEN UDPATE. NEW ORDERS RECIEVED.
--- NOTE | 2018-03-27 11:00 | NUR ---
REASSESSMENT COMPLETE PER FLOW SHEET. VSS. NO NEW CHANGES WILL CONTINUE TO MONITOR
--- NOTE | 2018-03-27 15:34 | NUR ---
REASSESSMENT COMPLETEP ER FLOW SHEET. VSS. NO NEW CHANGES WILL CONTINUE TO MONITOR
[2018-03-27] MEDS ORDERED: MIRALAX17 GM PO (19:01)
--- NOTE | 2018-03-27 20:59 | MORECARE ---
CASE MANAGEMENT DISCHARGE SUMMARY PATIENT: CHRISTEL HOUSE UNIT: [id number] ADM DATE: 03/24/18 AGE: 88 : 32 SEX: M ROOM/BED: D.2310 AUTHOR: SHERITA CERRATO PHYSICIAN: REFERRING PHYSICIAN: OLGA DIAZ MD DATE OF SERVICE: 03/27/18 Discharge Plan Patient Name: CHRISTEL HOUSE Facility: [facility]:[place] : 1930 Planned Disposition: Assisted Living Anticipated Discharge Date: Discharge Date: Expected LOS: Initial Reviewer: [email or web address] Initial Review Date: 03/24/2018 Generated: 03/27/18 9:58 pm Patient Name: CHRISTEL HOUSE Page 74557 at 2058 All edits/amendments must be made on the electronic document DICTATION DATE: 03/27/182057 TRAINING ASSOCIATE: JAYASHREE 03/27/182057 RPT#: [id number] DC DATE: STATUS: ADM IN [facility] [address] [place] [address] END OF REPORT
--- NOTE | 2018-03-27 21:05 | MORECARE ---
CASE MANAGEMENT DISCHARGE SUMMARY PATIENT: CHRISTEL HOUSE UNIT: [id number] ADM DATE: 03/24/18 AGE: 88 : 32 SEX: M ROOM/BED: D.2310 AUTHOR: SHERITA CERRATO PHYSICIAN: REFERRING PHYSICIAN: OLGA DIAZ MD DATE OF SERVICE: 03/27/18 Discharge Plan Patient Name: CHRISTEL HOUSE [facility] : 1930 Planned Disposition: Assisted Living Anticipated Discharge Date: Discharge Date: Expected LOS: Initial Reviewer: [email or web address] Initial Review Date: 03/24/2018 Generated: 03/27/18 10:05 pm DCPIA - Discharge Planning Initial Assessment Updated by [email or web address]: Alka Braden on 03/27/18 8:59 pm * Is the patient Alert and Oriented? Yes * How many steps to enter\exit or inside your home? * PCP no pcp * [facility] * Preadmission Environment Assisted Living * Facility Name [address] [address] * ADLs Independent * Equipment Walker * List name and contact numbers for known caregivers / representatives who currently or will assist patient after discharge: Jose Castañ[facility]CR[facility]- [phone] SAM - CAREGIVER- [phone] * Verbal permission to speak to the caregivers and representatives has been obtained from the patient. Yes * Community resources currently utilized Assisted Living * Please name any agencies selected above. [facility] * Additional services required to return to the preadmission environment? No * Can the patient safely return to the preadmission environment? Yes * Has this patient been hospitalized within the prior 30 days at any hospital? No Last DP export: 03/27/18 7:59 p Patient Name: CHRISTEL HOUSE Page 78411 at 210 All edits/amendments must be made on the electronic document DICTATION DATE: 03/27/182104 PAINTER SPRING: JAYASHREE 03/27/182104 RPT#: [id number] DC DATE: STATUS: ADM IN [facility] [address] [place] [address] END OF REPORT
--- NOTE | 2018-03-27 21:12 | MORECARE ---
CASE MANAGEMENT DISCHARGE SUMMARY PATIENT: CHRISTEL HOUSE UNIT: [id number] ADM DATE: 03/24/18 AGE: 88 : 32 SEX: M ROOM/BED: D.2310 AUTHOR: BLOSSOM,DOC PHYSICIAN: REFERRING PHYSICIAN: OLGA DIAZ MD DATE OF SERVICE: 03/27/18 Discharge Plan Patient Name: CHRISTEL HOUSE Facility: [facility]:[place] : 1930 Planned Disposition: Assisted Living Anticipated Discharge Date: Discharge Date: Expected LOS: Initial Reviewer: [email or web address] Initial Review Date: 03/24/2018 Generated: 03/27/18 10:11 pm Comments DCP- Discharge Planning Updated by [email or web address]: Alka Braden on 03/27/18 8:[address] Patient Name: CHRISTEL HOUSE Admission Status: ER Accout number: [id number] Admission Date: 03-24-2018 : 1930 Admission Diagnosis:SHORTNESS OF BREATH Attending: OLGA DIAZ Current LOS: 3 Anticipated DC Date: Planned Disposition: Assisted Living Primary Insurance: MEDICARE A & B Discharge Planning Comments: CM met with patient at bedside after obtaining verbal consent. Patient states he plans on returning to [facility], [address] [place] [address], [place] [address] after discharge with his . Patient states he has been staying their with his because she has a brain tumor. Patient states his grandson Jose is his POA [phone]. Patient denies any discharge needs at this time. CM will continue to follow and assist as needed for discharge planning / needs. Saddle Lining Stitcher: Alka Braden DCPIA - Discharge Planning Initial Assessment Updated by [email or web address]: Alka Braden on 03/27/18 8:59 pm * Is the patient Alert and Oriented? Yes * How many steps to enter\exit or inside your home? * PCP no pcp * [facility] * Preadmission Environment Assisted Living * Facility Name [address] [place] [address] * ADLs Independent * Equipment Walker * List name and contact numbers for known caregivers / representatives who currently or will assist patient after discharge: Jose Castañeda- POA- [phone] SAM - CAREGIVER- [phone] * Verbal permission to speak to the caregivers and representatives has been obtained from the patient. Yes * Community resources currently utilized Assisted Living * Please name any agencies selected above. [facility] * Additional services required to return to the preadmission environment? No * Can the patient safely return to the preadmission environment? Yes * Has this patient been hospitalized within the prior 30 days at any hospital? No Last DP export: 03/27/18 8:05 p Patient Name: CHRISTEL HOUSE Page 44934 at 2112 All edits/amendments must be made on the electronic document DICTATION DATE: 03/27/182110 EXPLOITATION ANALYST: JAYASHREE 03/27/182110 RPT#: [id number] DC DATE: STATUS: ADM IN [facility] [address] [place] [address] END OF REPORT
[2018-03-28] VITALS (22 sets, daily range): BP systolic 87–120; BP diastolic 50–81
[2018-03-28 05:14] LABS: BASOPHILS 0.2 % (0-2); EOSINOPHILS 0.6 % (0-7); HEMATOCRIT 38.8 % (42.0-54.0); IMMATURE GRANULOCYTES 0.1 % (0-5); LYMPHOCYTES 7.9 % (15-50); MCH 30.1 pg (26.0-34.0); MCHC 33.5 g/dL (31.0-37.0); MCV 89.8 fL (80.0-100.0); MONOCYTES 10.6 % (2-11); NEUTROPHILS 80.6 % (40-80); PLATELET COUNT 135 10x3/uL (130-400); RBC 4.32 10x6/uL (4.20-6.10); RDW 16.3 % (11.5-14.5)
[2018-03-28 05:22] LABS: INR 1.28 (0.85-1.17); PROTIME 15.5 SECONDS (11.6-15.0)
[2018-03-28 05:29] LABS: WBC 10.2 10x3/uL (4.8-10.8)
[2018-03-28 05:45] LABS: ANION GAP 9.4 mmol/L (8-16); CALCIUM 8.7 mg/dL (8.5-10.1); CARBON DIOXIDE 35.1 mmol/L (21.0-32.0); CREATININE - SERUM 1.4 mg/dL (0.6-1.3); POTASSIUM - SERUM 3.5 mmol/L (3.5-5.1)
--- NOTE | 2018-03-28 07:00 | NUR ---
REC'D REPORT AND RESUMED CARE, AWAKE AND CONFUSED, VSS, DENIES PAIN, O2 VIA 3L NC, SAT 97%, RIGHT WRIST PIV WITH DOBUTAMINE INFUSING AT 5 MCG/KG/MIN, RIGHT R GROIN WITH DRESSING CDI, MULTI BRUISING NOTED TO UPPER EXTREMETIES, ASSESSMENT COMPLETED PER FLOWSHEET, DENIES PAIN, REPOSTITONED UP AND TO RIGHT SIDE WITH PILLOW PROPPED TP BACK AND HEELS FLOATED, URINAL IN USE, 500 CC DIONNA DRAINAGE TO CANISTER, CALL LIGHT IN REACH, NO NEEDS AT THIS TIME
--- NOTE | 2018-03-28 09:00 | NUR ---
MORNING MEDS GIVEN PER FLOWSHEET, TOLERATED WITHOUT DIFFICULTY
--- NOTE | 2018-03-28 09:30 | NUR ---
OOB TO BSC, SMALLL FORM STOOL TO VORA, SKINCARE AND PARTIAL LINEN CHANGE COMPLETED
--- NOTE | 2018-03-28 10:05 | NUR ---
CALLED TO BEDSIDE, URINAL EMPTIED OF 600 CC, NO OTHER NEEDS AT THIS TIME
--- NOTE | 2018-03-28 11:00 | NUR ---
UP IN CHAIR WITH ASSIST, VSS, DENIES PAIN, ASSESSMENT COMPLETED PER FLOWSHEET, CALL LIGHT IN REACH, VOICES NO NEEDS AT THIS TIME
--- NOTE | 2018-03-28 15:00 | NUR ---
SLEEPING AROUSABLE TO VERBAL STIMULI, CONFUSED, DENIES PAIN, ASSESSMENT COMPLETED PER FLOWSHEET, VSS, CALL LIGHT IN REACH, NO NEEDS A THIS TIME
--- NOTE | 2018-03-28 15:00 | NUR ---
BTB WITH ASSIST PER REQUEST TOLERATED TRANSFER WITHOUT DIFFICULTY, NO OTHER ACUTE CHANGE FROM PREVIOUS ASSESSMENT
--- NOTE | 2018-03-28 16:45 | NUR ---
DINNER TRAY TO BEDSIDE, ASSIST WITH SET UP, INDEPENDENT WITH EATING
--- NOTE | 2018-03-28 18:15 | NUR ---
CALLED TO ROOM, 80 % OF MEAL EATEN, TRAY FRO BEDSIDE, OOB TO BSC WITH ASSIST, TOLERATED TRANSFER WITH MINIMAL DYSPNEA,
--- NOTE | 2018-03-28 18:30 | NUR ---
CALLED TO ROOM, SMALL FORMED BM TO VORA, SKINCARE AND PARTIAL LINEN CHANGE
[2018-03-29] VITALS (20 sets, daily range): BP systolic 87–117; BP diastolic 51–79
[2018-03-29 05:17] LABS: INR 1.27 (0.85-1.17); PROTIME 15.3 SECONDS (11.6-15.0)
[2018-03-29 05:24] LABS: ANION GAP 9.9 mmol/L (8-16); CALCIUM 8.3 mg/dL (8.5-10.1); CREATININE - SERUM 1.2 mg/dL (0.6-1.3)
[2018-03-29 05:27] LABS: LYMPHOCYTES 9.6 % (15-50); MCH 29.9 pg (26.0-34.0); MCHC 33.3 g/dL (31.0-37.0); MCV 89.7 fL (80.0-100.0); MEAN PLATELET VOLUME 11.8 fL (7.4-10.4); NEUTROPHILS 80.2 % (40-80); PLATELET COUNT 119 10x3/uL (130-400); RBC 4.35 10x6/uL (4.20-6.10); RDW 16.2 % (11.5-14.5)
[2018-03-29 05:30] LABS: WBC 7.6 10x3/uL (4.8-10.8)
[2018-03-29 05:49] LABS: POTASSIUM - SERUM 2.9 mmol/L (3.5-5.1)
--- NOTE | 2018-03-29 10:24 | NUR ---
PATIENT IS UPSET WITH STAFF BECAUSE WE WILL NOT GET HIM A WHEEL CHAIR AND CALL A CAB. WILL NOT ALLOW TELE. TO REMAIN IN PLACE, WILL NOT ALLOW O2 SAT TO REMAIN IN PLACE, WILL NOT DURON O2.
--- NOTE | 2018-03-29 10:28 | NUR ---
NUTRITION F/U PT UP TO CHAIR. REPORTS TOLERATING AHA DIET WITH GOOD INTAKE RECENT MEALS. WILL CONTINUE TO PROVIDE DIET, MONITOR INTAKE. PT CURRENTLY DECLINES ENSURE. RD FOLLOWING
--- NOTE | 2018-03-29 12:37 | NUR ---
PATIENT ATTEMPTED TO WALK OUT OF UNIT, ATIVAN IV GIVEN, PLACE TO BED, ALL EQUIPMENT REPLACED AND F/C INSTERTED FOR ACCURATE I&O PATIENT CONSTANTLY INCONT. OF URINE.
[2018-03-29 15:48] LABS: APPEARANCE CLEAR (CLEAR); COLOR YELLOW (YELLOW); SPECIFIC GRAVITY 1.015 (1.005-1.020)
[2018-03-29 15:50] LABS: BILIRUBIN NEGATIVE (NEGATIVE); GLUCOSE NEGATIVE (NEGATIVE); KETONE NEGATIVE (NEGATIVE); NITRITE NEGATIVE (NEGATIVE); PROTEIN NEGATIVE (NEGATIVE); UROBILINOGEN NORMAL (NORMAL)
[2018-03-29 15:55] LABS: BACTERIA MODERATE /hpf (NONE SEEN); RED CELLS - URINE 0-5 /hpf (0-5)
[2018-03-30] VITALS (24 sets, daily range): BP systolic 88–117; BP diastolic 42–76
[2018-03-30 04:07] LABS: INR 1.21 (0.85-1.17); PROTIME 14.8 SECONDS (11.6-15.0)
[2018-03-30 04:08] LABS: BASOPHILS 0.4 % (0-2); EOSINOPHILS 0.7 % (0-7); HEMATOCRIT 40.4 % (42.0-54.0); HEMOGLOBIN 13.4 g/dL (13.5-17.5); IMMATURE GRANULOCYTES 0.3 % (0-5); LYMPHOCYTES 14.1 % (15-50); MCH 29.6 pg (26.0-34.0); MCHC 33.2 g/dL (31.0-37.0); MCV 89.4 fL (80.0-100.0); MEAN PLATELET VOLUME 11.4 fL (7.4-10.4); MONOCYTES 10.7 % (2-11); NEUTROPHILS 73.8 % (40-80); PLATELET COUNT 138 10x3/uL (130-400); RBC 4.52 10x6/uL (4.20-6.10); RDW 15.7 % (11.5-14.5); WBC 7.1 10x3/uL (4.8-10.8)
[2018-03-30 04:24] LABS: CALC OSMOLALITY 283 mosm/kg (275-300); CALCIUM 8.5 mg/dL (8.5-10.1); CARBON DIOXIDE 33.8 mmol/L (21.0-32.0); CHLORIDE - SERUM 99 mmol/L (98-107); DIGOXIN 0.33 ng/mL (0.90-2.00); GLUCOSE 90 mg/dL (74-106); MAGNESIUM - SERUM 1.5 mg/dL (1.8-2.4); PHOSPHOROUS 2.2 mg/dL (2.5-4.9); POTASSIUM - SERUM 3.3 mmol/L (3.5-5.1); PRO BNP 6441 pg/mL (0-450); SODIUM 140 mmol/L (136-145); UREA NITROGEN 26 mg/dL (7-18); eGFR NON AFRICAN AMERICAN 75 mL/min (90-120)
--- NOTE | 2018-03-30 10:57 | NUR ---
PAGED DR. DUFF TO REPORT NOTED A-FLUTTER
--- NOTE | 2018-03-30 10:59 | NUR ---
DR. DUFF RETURNED PAGE AND WILL COME SEE PATIENT, NO NEW ORDERS AT PRESENT.
--- NOTE | 2018-03-30 11:15 | NUR ---
VERY CONFUSED, DOES NOT REMEMBER TALKING TO FAMILY THIS AM, DOES NOT REMEMBER VISITOR THIS AM, (IT WAS THE PERSON TAKING CARE OF HIS DOG AT HOME).
--- NOTE | 2018-03-30 11:21 | NUR ---
PULLING AT IV LINES, F/C AND EQUIPMENT, NURSE TALKED HIM DOWN FOR NOW BUT MORGAN IS DETERMINED TO LEAVE FACILITY
--- NOTE | 2018-03-30 12:52 | NUR ---
REPORT CALLED TO CV NURSE.
--- NOTE | 2018-03-30 13:00 | NUR ---
REC'D TO ROOM CVICU 7 VIA BED. CONNECTED TO MONITOR. CONFUSED. BED ALARM ON.
--- NOTE | 2018-03-30 14:25 | NUR ---
IV L WRIST ERYTHEMATOUS. IV RESTARTED WITH 20G IN L FOREARM ON 1ST ATTEMPT.
[2018-03-30 19:12] LABS: ANION GAP 9.2 mmol/L (8-16); CALCIUM 8.7 mg/dL (8.5-10.1); CARBON DIOXIDE 35.4 mmol/L (21.0-32.0); CREATININE - SERUM 1.2 mg/dL (0.6-1.3); POTASSIUM - SERUM 3.6 mmol/L (3.5-5.1)
--- NOTE | 2018-03-30 23:00 | NUR ---
REASSESSMENT DONE SEE FLOW SHEET. VSS.
--- NOTE | 2018-03-30 23:00 | NUR ---
1900 REPOT RECEIVED CARE ASSUMED. PT LAYING IN BED RESTING. VSS. NO SIGNS OF ACUTE DISTRESS. WILL CONTINUE TO MONITOR. 2099 MEDS GIVEN PER APR. PT COUGHS WHILE DRINKING AND TAKING MEDS REFUSES SWALLOW EVAL.
[2018-03-31] VITALS (24 sets, daily range): BP systolic 83–112; BP diastolic 43–78
--- NOTE | 2018-03-31 03:00 | NUR ---
0100 PT OUT OF BED TO BED SIDE TABLE. MODERATE ASSISTANCE PROVIDED. NO BM NOTED. PT AGGRIVATED WITH INABILITY TO WALK AROUND FREELY. 0300 REASSESSMENT DONE SEE FLOW SHEET. VSS.
--- NOTE | 2018-03-31 05:00 | NUR ---
COMPLETE BED BATH GIVEN. LINEN CHANGE AIR OVERLAY MATTRESS PUT IN PLACE. PT AMBULATED TO CHAIR MODERATE ASSISTANCE. ATTEMPTED BM. NO BM NOTED. PT INCREASINGLY AGGITATED WITH WANTING TO GO HOME WITH GRANDSON. VSS. WILL CONTINUE TO MONITOR.
[2018-03-31 05:37] LABS: BASOPHILS 0.4 % (0-2); EOSINOPHILS 1.6 % (0-7); HEMATOCRIT 45.7 % (42.0-54.0); IMMATURE GRANULOCYTES 0.2 % (0-5); LYMPHOCYTES 12.3 % (15-50); MCH 29.5 pg (26.0-34.0); MCHC 32.8 g/dL (31.0-37.0); MCV 89.8 fL (80.0-100.0); MONOCYTES 10.6 % (2-11); NEUTROPHILS 74.9 % (40-80); PLATELET COUNT 144 10x3/uL (130-400); RBC 5.09 10x6/uL (4.20-6.10); RDW 15.5 % (11.5-14.5)
[2018-03-31 05:56] LABS: WBC 9.9 10x3/uL (4.8-10.8)
[2018-03-31 06:14] LABS: ALBUMIN 2.7 g/dL (3.4-5.0); ALKALINE PHOSPHATASE 86 U/L (46-116); ALT (SGPT) 19 U/L (10-68); BILIRUBIN - TOTAL 1.61 mg/dL (0.2-1.3); CALC OSMOLALITY 281 mosm/kg (275-300); CARBON DIOXIDE 35.4 mmol/L (21.0-32.0); CHLORIDE - SERUM 99 mmol/L (98-107); MAGNESIUM - SERUM 1.8 mg/dL (1.8-2.4); PHOSPHOROUS 2.7 mg/dL (2.5-4.9); POTASSIUM - SERUM 3.9 mmol/L (3.5-5.1); PRO BNP 6678 pg/mL (0-450); PROTEIN - SERUM 6.2 g/dL (6.4-8.2); SODIUM 140 mmol/L (136-145); UREA NITROGEN 23 mg/dL (7-18); eGFR NON AFRICAN AMERICAN 75 mL/min (90-120)
[2018-03-31 06:16] LABS: GLUCOSE 88 mg/dL (74-106)
[2018-03-31 06:36] LABS: APTT 40.7 SECONDS (22.8-39.4); INR 1.18 (0.85-1.17); PROTIME 14.5 SECONDS (11.6-15.0)
--- NOTE | 2018-03-31 10:28 | NUR ---
0725: AWAKE. SITTING IN CHAIR. REQUESTING TO HAVE IV AND RANDOLPH TAKEN OUT BECAUSE HIS GRANDSON WAS ON THE WAY TO PICK HIM UP. EXPLAINED TO HIM THAT HE HAD NOT BEEN DISCHARGED AND WE WOULD DISCUSS ALL THESE MATTERS WHEN HIS GRANDSON GOT HERE. 0800: ASSISTED BACK TO BED BY 2 NURSES. 1000: YELLING OUT. WANTING RANDOLPH REMOVED. EXPLAINED THE IMPORTANCE OF MAINTAINING HIS CATH DUE TO HIM BEING ON LASIX. CALMED DOWN. CONTINUES TO TELL ME HIS GRANDSON IS COMING TO PICK HIM UP.
--- NOTE | 2018-03-31 21:02 | NUR ---
1899 REPORT RECEIVED CARE ASSUMED. PT LAYING IN BED RESTING. VSS. ASSESSMENT DONE SEEE FLOW SHEET. 1929 BED ALARM ALARMING. PT STANDING AT SIDE OF BED. ATTEMPTING TO GO TO BATHROOM. PT ASSISTED MODERATE ASSISTANCE TO BEDSIDE COMMODE. BM NOTED SMALL FORMED. PT HELPED TO BED. VSS. 2100 MEDS GIVEN PER APR. VSS. COUGHING WITH DRINKING NOTED.
[2018-04-01] VITALS (22 sets, daily range): BP systolic 81–115; BP diastolic 39–57
--- NOTE | 2018-04-01 03:01 | NUR ---
2300 REASSESSMENT DONE SEE FLOW SHEET. VSS. 0100 WATER PROVIDED PER PT REQUEST. WILL CONTINUE TO MONITOR . 0300 REASSESSMENT DONE SEE FLOW SHEET. VSS.
[2018-04-01 04:34] LABS: BASOPHILS 0.2 % (0-2); EOSINOPHILS 2.8 % (0-7); HEMOGLOBIN 13.7 g/dL (13.5-17.5); IMMATURE GRANULOCYTES 0.5 % (0-5); LYMPHOCYTES 13.9 % (15-50); MCH 29.4 pg (26.0-34.0); MCHC 32.6 g/dL (31.0-37.0); MCV 90.1 fL (80.0-100.0); MEAN PLATELET VOLUME 11.3 fL (7.4-10.4); MONOCYTES 12.5 % (2-11); NEUTROPHILS 70.1 % (40-80); PLATELET COUNT 143 10x3/uL (130-400); RBC 4.66 10x6/uL (4.20-6.10); RDW 15.4 % (11.5-14.5); WBC 8.1 10x3/uL (4.8-10.8)
[2018-04-01 04:51] LABS: ALBUMIN 2.4 g/dL (3.4-5.0); ANION GAP 9.2 mmol/L (8-16); BILIRUBIN - TOTAL 1.37 mg/dL (0.2-1.3); CALCIUM 8.7 mg/dL (8.5-10.1); CARBON DIOXIDE 35.2 mmol/L (21.0-32.0); CREATININE - SERUM 1.1 mg/dL (0.6-1.3); POTASSIUM - SERUM 3.4 mmol/L (3.5-5.1); PROTEIN - SERUM 5.6 g/dL (6.4-8.2)
--- NOTE | 2018-04-01 07:00 | NUR ---
PATIENT RESTING IN BED C CALL MURRAY IN REACH AWAKE AND ALERT. VSS. RHYTHM PACED AT TIMES AND CONTROLLED A-FIB AT OTHERS. ASSISTED ON TO BEDSIDE COMMODE FOR SMALL BM. PT CLEANED SELF. RANDOLPH INTACT. 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 ASSISTED BACK IN BED AND HOOKED UP TO MONITOR. WILL CONTINUE TO WATCH.
--- NOTE | 2018-04-01 08:00 | NUR ---
PT REMOVED BP CUFF FOR THIS HOUR SO DID NOT OBTAIN BP FOR THIS TIME.
--- NOTE | 2018-04-01 09:00 | NUR ---
ASSISTED PATIENT ONTO BEDSIDE COMMODE AGAIN. NO BM. PT WIPED SELF.
--- NOTE | 2018-04-01 10:00 | NUR ---
PATIENT REFUSED k+ LAB REDRAW. PREVIOUS WAS 3.4 AND TREATED WITH 40MEQ KDUR. WILL MONITOR RHYTHM.
--- NOTE | 2018-04-01 10:52 | NUR ---
PLACED MEPILEX ON STAGE TWO COCCYX WOUND AND TURNED TO RIGHT SIDE. WOUND CARE NURSE MARGARITA CAME TO SEE PATIENT.
--- NOTE | 2018-04-01 11:06 | NUR ---
CALLED CAMP BOSS TO RELAY MESSAGE TO SHERIN ABOUT DR. DIAZ'S SUGGESTION OF INCREASING PACE MAKER BASE RATE SETTING TO IMPROVE CARDIAC OUTPUT. CAMP BOSS NURSE REPORTED SHE WILL ASK SHERIN TO COME BY CV WHEN FINISHED WITH HEART CATH.
--- NOTE | 2018-04-01 11:36 | NUR ---
Wound care consult: Pt has a stage 2 pressure injury on his left buttock measuring 2cm x 2cm and a stage 2 pressure injury on his right buttock measuring 3cm x 3cm. He is on an air overlay mattress. Mepilex sacral dressing was applied. Pt is able to turn/reposition himself, as evidenced by him doing so when wound care assessed him. Recommendations: -Remind pt to reposition/turn every 2 hours/hourly if sitting up in chair Wound care will continue monitoring.
--- NOTE | 2018-04-01 12:24 | NUR ---
DR. DUFF CAME BY TO SEE PATIENT. DOES NOT WANT TO INCREASE PACE MAKER BASE RATE TO FOR CARDIAC OUTPUT.
--- NOTE | 2018-04-01 13:22 | NUR ---
Rehab Note- Acute Inpatient Rehab prescreen order received. The patient needs a new PT Eval, never been done fromthe d/t moved to ICU- spoke campos/ PAUL Rucker to get new PT Eval to see the patient's functional level. Will continue to follow at this time. Thank you for this referral! Derrek Angulo RN Clinical LIaison, [facility] Rehab
--- NOTE | 2018-04-01 13:48 | NUR ---
Pt is on an AHA diet with fair po intake Pt ate 90% of dinner last night and about 40-50% of meals today Speech therapy signed off on 03/27 Noted to have 2 stage 2 pressure injuries Inpatient rehab evaluation ordered Pt sleeping during rounds-spoke with nursing Will add Sp BID RD following
--- NOTE | 2018-04-01 14:35 | NUR ---
PHYSICAL THERAPY ASSISTED PATIENT TO BSC AND DEEMED MIN ASSIST. RECOMMENDS REHAB. PT HAD SMALL BM AND WIPED SELF. NURSE ASSISTED BACK TO BED.
--- NOTE | 2018-04-01 15:02 | NUR ---
NOTIFIED NIMESH AMIN APN ABOUT DR. CALLAHAN INTENTION TO ORDER XARELTO FOR A-FIB. STATED SHE WOULD PLACE ORDER. ALSO RELAYED CONCERNS ABOUT SYSTOLIC BP IN 80'S AND MAP IN 50'S. STATED SHE WOULD TALK TO DR. DUFF ABOUT RESTARTING DOBUTAMINE.
--- NOTE | 2018-04-01 15:42 | NUR ---
Rehab Note- PT Eval completed. The patient is having hypotenive and nursing is monitoring. Will follow at this time. The patient is a good rehab candidate if is in agreeance when medically stable and ready for discharge from the acute hospital. Thank you for this referral! Michela Angulo RN CLinical Liaison, [facility] Rehab
--- NOTE | 2018-04-01 16:34 | NUR ---
TURNED PATIENT FROM BACK TO RIGHT SIDE LYING POSITION. CHANGED COVERS. LINENS ARE CLEAN AND DRY.
--- NOTE | 2018-04-01 17:00 | NUR ---
PT HAD MEDIUM BM ON BSC. ASSISTED BACK TO BED. ALL LINENS CHANGED.
[2018-04-02] VITALS (12 sets, daily range): BP systolic 88–102; BP diastolic 41–60
--- NOTE | 2018-04-02 08:35 | NUR ---
UP IN CHAIR BESIDE BED AT THIS TIME. NO ACUTE DISTRESS NOTED. PT AWAKE. DENIES ANY NEEDS. ASSISTED TO TOILET, SMEAR SIZE VERY SMALL BOWEL MOVEMENT, BROWN NOTED. PT PROVIDED OWN AILYN CARE. CALL LIGHT IN REACH. WILL CONTINUE PLAN OF CARE.
--- NOTE | 2018-04-02 10:00 | NUR ---
PER SERVICE CONSULTANT, OKAY TO GIVE SOTALOL NOW WITH BP TRENDING 90-104.
--- NOTE | 2018-04-02 10:57 | NUR ---
PER DR DIAZ, PT IS MEDICALLY STABLE ENOUGH TO GO TO REHAB, AND HE STATED HE IS NOT CONCERNED ABOUT CONSULT WITH DR EDWARDS TO SEE PT BEFORE GOING TO REHAB. WILL CONTINUE PLAN OF CARE.
--- NOTE | 2018-04-02 12:03 | NUR ---
PER STACEY AT REHAB, PLEASE RECHECK WITH DR DUFF REGARDING HYPOTENSION AND IF HE PLANS TO CARDIOVERT. PER DR DUFF, OKAY FOR PT TO GO TO REHAB. ALSO STATED HE DOES NOT CURRENTLY PLAN TO CARDIOVERT. ALSO STATED HE WOULD ADJUST MEDICATIONS FOR BLOOD PRESSURE. WILL CONTINUE PLAN OF CARE.
--- NOTE | 2018-04-02 14:30 | NUR ---
Rehab Note- Have visted with the patient, his grandson, and family friend. They are in agreeance to [facility] Acute Inpatient Rehab. Have been discussing care with INGE Moreno and she has DR. Stevens adjusting his BP meds d/t hypotension. Will plan to admit when medicaaly stable and ready for discharge from the acute hospital. Michela Angulo RN Clinical Liaison, [facility] Rehab
--- NOTE | 2018-04-02 15:33 | NUR ---
PT REQUESTED THIS NURSE TO HAND HIM HIS SHAVING KIT. THIS NURSE HANDED PT HIS SHAVING AND LEFT THE ROOM FOR A FEW SECONDS. WHEN NURSE WALKED BACK IN TO ROOM PT HAD PULLED A BOTTLE OF DULCOLAX IN PERSONAL BAG WHILE STAFF WAS NOT IN ROOM. WHEN THIS NURSE WALKED IN TO ROOM PT WAS HOLDING 7 DULCOLAX PILLS FROM PERSONAL ITEMS. THREE NURSES IN ROOM ALONG WITH CASE MANAGEMENT TRIED TO STOP PT FROM TAKING MEDS AND PT STATED, "GET AWAY FROM ME, OR I WILL KNOCK THE HELL OUT OF YOU, I HAVE BEEN TAKING THESE FOR THE LAST 8 YEARS." AFTER MULTIPLE ATTEMPTS TO STOP PT FROM TAKING MEDS, HE INJESTED MEDS. DR DIAZ CALLED AND NOTIFIED, NO NEW ORDERS RECIEVED. AIRPLANE REFUELER NOTIFIED. WILL CONTINUE PLAN OF CARE.
--- NOTE | 2018-04-02 17:00 | NUR ---
PT DC TO INPATIENT REHAB AT [facility] AT THIS TIME. TRANSFERRED VIA WHEELCHAIR TO REHAB WITH DISCHARGE PAPERWORK AND ALL PERSONAL ITEMS. NO ACUTE DISTRESS NOTED. NO FURTHER ACTIONS.
--- NOTE | 2018-04-02 17:02 | MORECARE ---
CASE MANAGEMENT DISCHARGE SUMMARY PATIENT: CHRISTEL HOUSE UNIT: [id number] ADM DATE: 03/24/18 AGE: 88 : 32 SEX: M ROOM/BED: D.[facility] AUTHOR: BLOSSOM,DOC PHYSICIAN: REFERRING PHYSICIAN: OLGA DIAZ MD DATE OF SERVICE: 04/02/18 Discharge Plan Patient Name: CHRISTEL HOUSE Facility: [facility]:[place] : 1930 Planned Disposition: Inpatient Rehab Anticipated Discharge Date: Discharge Date: Expected LOS: Initial Reviewer: [email or web address] Initial Review Date: 03/24/2018 Generated: 04/02/18 6:02 pm Comments DCP- Discharge Planning Updated by [email or web address]: Alka Braden on 03/27/18 8:[address] Patient Name: CHRISTEL HOUSE Admission Status: ER Accout number: [id number] Admission Date: 03-24-2018 : 1930 Admission Diagnosis:SHORTNESS OF BREATH Attending: OLGA DIAZ Current LOS: 3 Anticipated DC Date: Planned Disposition: Assisted Living Primary Insurance: MEDICARE A & B Discharge Planning Comments: CM met with patient at bedside after obtaining verbal consent. Patient states he plans on returning to [facility], [address] [place] [address] after discharge with his . Patient states he has been staying their with his because she has a brain tumor. Patient states his grandson Jose is his POA [phone]. Patient denies any discharge needs at this time. CM will continue to follow and assist as needed for discharge planning / needs. Senior Market Intelligence Consultant: Alka Braden DCPIA - Discharge Planning Initial Assessment Updated by [email or web address]: Alka Braden on 03/27/18 8:59 pm * Is the patient Alert and Oriented? Yes * How many steps to enter\exit or inside your home? * PCP no pcp * [facility] * Preadmission Environment Assisted Living * Facility Name [address] [place] [address] * ADLs Independent * Equipment Walker * List name and contact numbers for known caregivers / representatives who currently or will assist patient after discharge: Jose Castañeda- POA- [phone] SAM - CAREGIVER- [phone] * Verbal permission to speak to the caregivers and representatives has been obtained from the patient. Yes * Community resources currently utilized Assisted Living * Please name any agencies selected above. [facility] * Additional services required to return to the preadmission environment? No * Can the patient safely return to the preadmission environment? Yes * Has this patient been hospitalized within the prior 30 days at any hospital? No Last DP export: 03/27/18 8:11 p Patient Name: CHRISTEL HOUSE Page 92315 at 1702 All edits/amendments must be made on the electronic document DICTATION DATE: 04/02/181701 PUBLIC HEALTH STAFF NURSE: JAYASHREE 04/02/181701 RPT#: [id number] DC DATE: STATUS: ADM IN [facility] [address] [place] [address] END OF REPORT
--- NOTE | 2018-04-02 17:26 | MORECARE ---
CASE MANAGEMENT DISCHARGE SUMMARY PATIENT: CHRISTEL HOUSE UNIT: [id number] ADM DATE: 03/24/18 AGE: 88 : 32 SEX: M ROOM/BED: D.[facility] AUTHOR: BLOSSOMDOC PHYSICIAN: REFERRING PHYSICIAN: OLGA DIAZ MD DATE OF SERVICE: 04/02/18 Discharge Plan Patient Name: CHRISTEL HOUSE Facility: [facility]:[place] : 1930 Planned Disposition: Inpatient Rehab Anticipated Discharge Date: Discharge Date: 04/02/2018 Expected LOS: Initial Reviewer: [email or web address] Initial Review Date: 03/24/2018 Generated: 04/02/18 6:26 pm Comments DCP- Discharge Planning Updated by [email or web address]: Alka Braden on 04/02/18 4:[address] Late Entry 04/01/18 @ 0900 CM spoke with patients Maddy MOSHER. He requested for information on Rehab and Hospice facilities in the area. He stated since his Grandmother is on Hospice care and the patient is going to need some therapy before he can return home alone. CM gave information to all area SNF and Hospice agencies in the area. PAUL spoke with Dr. Stevens and he stated that patient could possibly go into inpatient rehab. Patient and Jose both agree to inpatient rehab for strengthening. Michela with inpatient rehab evaluated patient and will accept when medically stable. DCP- Discharge Planning Updated by [email or web address]: Alka Braden on 03/27/18 8:[address] Patient Name: CHRISTEL HOUSE Admission Status: ER Accout number: [id number] Admission Date: 03-24-2018 : 1930 Admission Diagnosis:SHORTNESS OF BREATH Attending: OLGA DIAZ Current LOS: 3 Anticipated DC Date: Planned Disposition: Assisted Living Primary Insurance: MEDICARE A & B Discharge Planning Comments: CM met with patient at bedside after obtaining verbal consent. Patient states he plans on returning to [facility], [address] [place] [id number] after discharge with his . Patient states he has been staying their with his because she has a brain tumor. Patient states his grandson Jose is his POA [phone]. Patient denies any discharge needs at this time. CM will continue to follow and assist as needed for discharge planning / needs. Landing Signal Officer: Alka Braden DCPIA - Discharge Planning Initial Assessment Updated by [email or web address]: Alka Braden on 03/27/18 8:59 pm * Is the patient Alert and Oriented? Yes * How many steps to enter\exit or inside your home? * PCP no pcp * [facility] * Preadmission Environment Assisted Living * Facility Name [facility] [address] [place] [address] * ADLs Independent * Equipment Walker * List name and contact numbers for known caregivers / representatives who currently or will assist patient after discharge: Jose Castañeda- POA- [phone] SAM - CAREGIVER- [phone] * Verbal permission to speak to the caregivers and representatives has been obtained from the patient. Yes * Community resources currently utilized Assisted Living * Please name any agencies selected above. [facility] * Additional services required to return to the preadmission environment? No * Can the patient safely return to the preadmission environment? Yes * Has this patient been hospitalized within the prior 30 days at any hospital? No Last DP export: 04/02/18 4:02 p Patient Name: [facility]RISTEL [facility]SE Page 18713 at 1726 All edits/amendments must be made on the electronic document DICTATION DATE: 04/02/181725 APPLIANCE PARTS COUNTER CLERK: JAYASHREE 04/02/181725 RPT#: [id number] DC DATE:04/02/18 STATUS: DIS IN [facility] [address] [place] [address] END OF REPORT
[2018-04-02] MEDS ORDERED: ATROVENT 0.02%2.5 ML UPD (17:30)
[2018-04-02] MEDS ORDERED: BETAPACE 80 MG80 MG PO (17:31)
[2018-04-02] MEDS ORDERED: BACTRIM 400-801 TAB PO (17:31)
[2018-04-02] MEDS ORDERED: BROVANA15 MCG/2 M INH (17:32)
[2018-04-02] MEDS ORDERED: BUMEX2 MG PO (17:32)
[2018-04-02] MEDS ORDERED: COLACE100 MG PO (17:33)
[2018-04-02] MEDS ORDERED: DULCOLAX5 MG PO (17:34)
[2018-04-02] MEDS ORDERED: FLORAJEN3 CAPS460 MG PO (17:35)
[2018-04-02] MEDS ORDERED: GEODON20 MG PO (17:35)
--- NOTE | 2018-04-02 17:35 | MORECARE ---
CASE MANAGEMENT DISCHARGE SUMMARY PATIENT: CHRISTEL HOUSE UNIT: [id number] ADM DATE: 03/24/18 AGE: 88 : 32 SEX: M ROOM/BED: D.[facility] AUTHOR: BLOSSOM,DOC PHYSICIAN: REFERRING PHYSICIAN: OLGA DIAZ MD DATE OF SERVICE: 04/02/18 Discharge Plan Patient Name: CHRISTEL HOUSE Facility: [facility]:[place] : 1930 Planned Disposition: Inpatient Rehab Anticipated Discharge Date: Discharge Date: 04/02/2018 Expected LOS: Initial Reviewer: [email or web address] Initial Review Date: 03/24/2018 Generated: 04/02/18 6:35 pm Comments DCP- Discharge Planning Updated by [email or web address]: Alka Braden on 04/02/18 4:[address] CM received order that patient stable for discharge to rehab. Michela was notified in Rehab and she stated that as soon as she finished screen she would call with room number. [facility] explained and served 04/02/18 @ 1505. CM will continue to follow and assist as needed with discharge planning / needs. DCP- Discharge Planning Updated by [email or web address]: Alka Braden on 04/02/18 4:[address] Late Entry 04/01/18 @ 0900 CM spoke with patients Maddy MOSHER. He requested for information on Rehab and Hospice facilities in the area. He stated since his Grandmother is on Hospice care and the patient is going to need some therapy before he can return home alone. CM gave information to all area SNF and Hospice agencies in the area. PAUL spoke with Dr. Stevens and he stated that patient could possibly go into inpatient rehab. Patient and Jose both agree to inpatient rehab for strengthening. Michela with inpatient rehab evaluated patient and will accept when medically stable. DCP- Discharge Planning Updated by [email or web address]: Alka Braden on 03/27/18 8:[address] Patient Name: CHRISTEL HOUSE Admission Status: ER Accout number: [id number] Admission Date: 03-24-2018 : 1930 Admission Diagnosis:SHORTNESS OF BREATH Attending: OLGA DIAZ Current LOS: 3 Anticipated DC Date: Planned Disposition: Assisted Living Primary Insurance: MEDICARE A & B Discharge Planning Comments: CM met with patient at bedside after obtaining verbal consent. Patient states he plans on returning to [facility], [place] [address] after discharge with his . Patient states he has been staying their with his because she has a brain tumor. Patient states his grandson Jose is his POA [phone]. Patient denies any discharge needs at this time. CM will continue to follow and assist as needed for discharge planning / needs. Last Cleaner: Alka Braden DCPIA - Discharge Planning Initial Assessment Updated by [email or web address]: Alka Braden on 03/27/18 8:59 pm * Is the patient Alert and Oriented? Yes * How many steps to enter\exit or inside your home? * PCP no pcp * [facility] * Preadmission Environment Assisted Living * Facility Name [facility] [place], [place] [address] * ADLs Independent * Equipment Walker * List name and contact numbers for known caregivers / representatives who currently or will assist patient after discharge: Jose Castañeda- POA- [phone] SAM - CAREGIVER- [phone] * Verbal permission to speak to the caregivers and representatives has been obtained from the patient. Yes * Community resources currently utilized Assisted Living * Please name any agencies selected above. [facility] * Additional services required to return to the preadmission environment? No * Can the patient safely return to the preadmission environment? Yes * Has this patient been hospitalized within the prior 30 days at any hospital? 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
[2018-04-02] MEDS ORDERED: PROTONIX40 MG PO (17:37)
[2018-04-02] MEDS ORDERED: PLAVIX75 MG PO (17:37)
[2018-04-02] MEDS ORDERED: MIRALAX17 GM PO (17:37)
[2018-04-02] MEDS ORDERED: PULMICORT0.5 MG/21 INH (17:38)
[2018-04-02] MEDS ORDERED: ACETAMINOPHEN500 M1 PO (17:39)
== END 2018-04-02 17:16 | DRG 248 ==
LOC: D.ER 09:32 → D.EDHOLD 13:56 → D.ICU 13:56 → D.MS 13:56 → D.CVICU 13:56 → D.M2 13:56 → D.MS 14:58 → D.M2 17:25 → D.SDCHOLD 03-25 17:06 → D.M2 03-25 17:08 → D.ICU 03-27 00:43 → D.CVICU 03-30 13:24
PROVIDERS: Family Medicine; Family Medicine Adult Medicine; Internal Medicine Interventional Cardiology; ADMIT Internal Medicine Nephrology
PROC: 4A023N7 Measurement of Cardiac Sampling and Pressure, Left Heart, Percutaneous Approach (ICD-10-PCS; 2018-03-26)
PROC: B2121ZZ Fluoroscopy of Single Coronary Artery Bypass Graft using Low Osmolar Contrast (ICD-10-PCS; 2018-03-26)
PROC: B2181ZZ Fluoroscopy of Left Internal Mammary Bypass Graft using Low Osmolar Contrast (ICD-10-PCS; 2018-03-26)
PROC: B2151ZZ Fluoroscopy of Left Heart using Low Osmolar Contrast (ICD-10-PCS; 2018-03-26)
PROC: 02703DZ Dilation of Coronary Artery, One Artery with Intraluminal Device, Percutaneous Approach (ICD-10-PCS; principal; 2018-03-26 11:00)
PROC: B240ZZ3 Ultrasonography of Single Coronary Artery, Intravascular (ICD-10-PCS; 2018-03-26 11:00)
PROC: 5A09357 Assistance with Respiratory Ventilation, Less than 24 Consecutive Hours, Continuous Positive Airway Pressure (ICD-10-PCS; 2018-03-27)
DX: I11.0 Hypertensive heart disease with heart failure (principal); J96.01 Acute respiratory failure with hypoxia; R40.2314 Coma scale, best motor response, none, 24 hours or more after hospital admission; J98.11 Atelectasis; R18.8 Other ascites; N17.9 Acute kidney failure, unspecified; N39.0 Urinary tract infection, site not specified; I50.23 Acute on chronic systolic (congestive) heart failure; I42.9 Cardiomyopathy, unspecified; G62.9 Polyneuropathy, unspecified; I77.810 Thoracic aortic ectasia; R59.0 Localized enlarged lymph nodes; I48.91 Unspecified atrial fibrillation; I25.119 Atherosclerotic heart disease of native coronary artery with unspecified angina pectoris; I25.82 Chronic total occlusion of coronary artery; I95.9 Hypotension, unspecified; R41.0 Disorientation, unspecified; Z95.810 Presence of automatic (implantable) cardiac defibrillator; Z66 Do not resuscitate; J44.9 Chronic obstructive pulmonary disease, unspecified; R40.2134 Coma scale, eyes open, to sound, 24 hours or more after hospital admission; R40.2244 Coma scale, best verbal response, confused conversation, 24 hours or more after hospital admission

== ENCOUNTER 2018-04-02 16:14 | Inpatient (IN) | payer MEDICARE, BC ==
[~2018-04-02] VITALS: Ht 188 cm; Wt 80.3 kg
[~2018-04-02 16:14] MED LIST changes: +ALPHA LIPOIC ACID PO; +COREG 3.1253.125 MG PO; +MIRALAX17 GM PO; +PRESERVISION PO; +PROBIOTIC BLEN1 EACH
--- NOTE | 2018-04-02 17:08 | NUR ---
FROM ICU TO ROOM 1113B.
[2018-04-02] MEDS ORDERED: ATROVENT 0.02%2.5 ML UPD (17:30)
[2018-04-02] MEDS ORDERED: BACTRIM 400-801 TAB PO (17:31)
[2018-04-02] MEDS ORDERED: BETAPACE 80 MG80 MG PO (17:31)
[2018-04-02] MEDS ORDERED: BUMEX2 MG PO (17:32)
[2018-04-02] MEDS ORDERED: BROVANA15 MCG/2 M INH (17:32)
[2018-04-02] MEDS ORDERED: COLACE100 MG PO (17:33)
[2018-04-02] MEDS ORDERED: DULCOLAX5 MG PO (17:34)
[2018-04-02] MEDS ORDERED: GEODON20 MG PO (17:35)
[2018-04-02] MEDS ORDERED: FLORAJEN3 CAPS460 MG PO (17:35)
[2018-04-02] MEDS ORDERED: PROTONIX40 MG PO (17:37)
[2018-04-02] MEDS ORDERED: PLAVIX75 MG PO (17:37)
[2018-04-02] MEDS ORDERED: MIRALAX17 GM PO (17:37)
[2018-04-02] MEDS ORDERED: PULMICORT0.5 MG/21 INH (17:38)
[2018-04-02] MEDS ORDERED: ACETAMINOPHEN500 M1 PO (17:39)
[2018-04-02 17:41] VITALS: BP 105/54; BMI 22.7
--- NOTE | 2018-04-02 19:09 | NUR ---
WOUND CONSULT ORDERED FOR OPEN AREAS ON COCCYX AND DARK PURPLE UNBLANCHABLE AREA ON BUTTOCK. HAS DARK ESCHAR/SCAB ON R KNEE WITH REDNESS AROUND IT. VERY CONFUSED. BED ALARM PLACED. SAFETY INSTRUCTIONS GIVEN AND ASKED HIM TO USE CL FOR ASSIST WHEN HE NEEDED TO GET UP.
--- NOTE | 2018-04-02 19:20 | NUR ---
PT WATCHING TV, SORT OF GRUMPY, ASKED IF THERE WAS ANYTHING I COULD DO FOR HIM STATED NO, FLUIDS AND CALL LIGHT WITHIN REACH
[2018-04-02 20:00] VITALS: BP 113/51
[2018-04-02 20:34] LABS: ANION GAP 11.4 mmol/L (8-16); CALCIUM 8.6 mg/dL (8.5-10.1); CARBON DIOXIDE 34.8 mmol/L (21.0-32.0); CREATININE - SERUM 1.3 mg/dL (0.6-1.3); POTASSIUM - SERUM 3.2 mmol/L (3.5-5.1)
--- NOTE | 2018-04-02 22:00 | NUR ---
PATIENT USED CALL LIGHT FOR ASSIST. PATIENT HAD LOOSE WATERY STOOL ON HIMSELF & IN THE BED. PATIENT TAKEN TO TOILET, CLEANED & FINISHED HIS BM. PATIENT BED COMPLETE CHANGE. PATIENT RETURNED TO BED. ALARM ON. CALL LIGTH WITHIN REACH. RANDOLPH CATHETER PATENT WITH RED URINE IN BAG. WILL CONTINUE TO MONITOR.
--- NOTE | 2018-04-03 07:50 | NUR ---
RESP EVEN AND UNLABORED. NO DISTRESS NOTED. CL IN REACH.
[2018-04-03 08:00] VITALS: BP 95/53
--- NOTE | 2018-04-03 10:24 | NUR ---
SPOKE WITH SADI ALCAZARPRINTED CIRCUIT BOARD PANELS PLATER RE: COCCYX/BUTTOCK. PATIENT HAD SHOWER WITH OT. CHANGED MEPLIX ON COCCYX/BUTTOCK.
--- NOTE | 2018-04-03 10:28 | RHP ---
PATIENT: CHRISTEL HOUSE MEDICAL RECORD: [id number] ACCOUNT: [id number] LOCATION:[facility] : [birth year] ADMISSION DATE: 04/02/18 REHABILITATION HISTORY AND PHYSICAL EXAMINATION POST ADMISSION PHYSICIAN EXAMINATION DATE OF ADMISSION: 04/02/2018. ADMITTING DIAGNOSES: Neuromuscular disorder, CHF induced myopathy. HISTORY OF PRESENT ILLNESS: The patient admitted to the inpatient rehab with CHF myopathy. He is an 88-year-old gentleman who was admitted to the acute hospital through the ER with progressive worsening shortness of breath, lower extremity swelling. He has got a medical history of hypertension, coronary artery disease, pacemaker placement, CHF, neuropathy, chronic back pain, ischemic myopathy and history of coronary artery bypass grafting. He was seen in cardiac clinic 2 weeks ago. His ICD was interrogated and appeared to be compensated at the time. His EKG showed atrial fib. He underwent a cardiac catheterization and stent to his LAD. He had increased dyspnea and was transferred to the CV ICU and placed on BiPAP with pulmonary consult. He was on Bumex and dopamine without significant urine output. Creatinine was only 1.6. He had a Hurd catheter monitoring his output. Echo showed an EF of 20%. He remained in the CV ICU and has been hypotensive at times. Medications were adjusted throughout his stay. He continues to be on telemetry. He has got monitor of AFib with 3-4 liters of high flow O2. He has got a Hurd catheter. He is hypotensive and he has had medication adjustments, proximal muscle weakness, bilateral pleural effusions and cardiomegaly with CHF. He has got impaired mobility, deconditioning, debility. He is high fall for risk and self-care deficits. These are all barriers to his discharge home safely. He lives at [facility] assisted living, was there with his at that time. He is now in-house hospice, diagnosed with a brain tumor, his is. He was independent with his mobility and ADLs. He and his grandson plan for him to return back to his assisted living at his prior level of functioning or better if possible. COMORBIDITIES: In this patient include oropharyngeal dysphagia, chronic systolic heart failure, pleural effusion, dysphagia, UTI, pleural effusions, pulmonary edema, respiratory failure, CHF, cardiomegaly, atrial fib, hypotension, delirium, hypoxic respiratory failure with questionable fibrosis versus cirrhosis, ascites and coronary artery disease with stent placement. PAST MEDICAL HISTORY: Significant for cardiomyopathy, implantable cardiac device, defibrillator, hypertension, CHF, coronary artery disease with stents, peripheral vascular disease, skin cancers, arthritis, history of tobacco use, chronic back pain, and ischemic cardiomyopathy. PAST SURGICAL HISTORY: Includes pacemaker placement, hernia repair, coronary artery bypass grafting, and femoral stents. ALLERGIES: No known drug allergies. CURRENT MEDICATIONS: Include polyethylene glycol 17 grams in 8 ounces of water daily, Protonix 40 mg daily, Floranex 460 mg daily, digoxin 0.125 mg daily, Plavix 75 mg daily, vitamin D 5000 units daily, aspirin chewable 81 mg daily, Geodon 20 mg q.h.s., Bactrim-DS 1 tab b.i.d., sotalol 40 mg b.i.d., Atrovent HISTORY AND PHYSICAL [id number] CHRISTEL HOUSE updrafts 0.5 mg q.4 hours p.r.n., Colace 100 mg b.i.d., Bumex 2 mg b.i.d., Pulmicort 0.5 mg b.i.d., Dulcolax 5 mg b.i.d., Brovana 15 mcg b.i.d., and Tylenol as needed. HABITS: Does have a history of tobacco use, but not currently. FAMILY HISTORY: Noncontributory. SOCIAL HISTORY: The patient hopes to return back home and get back to his . REVIEW OF SYSTEMS: GENERAL: Does complain of weakness and fatigue. HEENT: Denies cold, cough, or congestion. CARDIOVASCULAR: Denies chest pain. PHYSICAL EXAMINATION: VITAL SIGNS: Stable, afebrile. GENERAL: A well-developed gentleman in no acute distress, alert upon exam. HEENT: Normocephalic and atraumatic. Mucosa moist. NECK: Supple. No lymphadenopathy. LUNGS: Clear in upper ruggiero. He does have decreased breath sounds in the bases. HEART: Irregular rate and rhythm. ABDOMEN: Benign. EXTREMITIES: No clubbing, cyanosis, or edema. NEUROLOGIC: He does have some noted weakness. LABORATORY DATA: His sodium is 140, potassium 3.2, BUN and creatinine of 30 and 1.3. ASSESSMENT: An 88-year-old gentleman with CHF induced myopathy. The patient has potential to make improvement. We instituted the following multidisciplinary therapies including, but not limited to physical, occupational, respiratory, speech, nutritional services, prosthetics and orthotics. Given his complex medical condition, risks for more complications, rehabilitation services cannot be provided at a low level of care such as a skilled nurse facility. PLAN: 1. Admit to [facility] rehab for an intensive inpatient therapy to include the following disciplines: A. Physical therapy to improve gait, all transfer skills and bed mobility to a modified independent level. B. Occupational therapy to improve activities of daily living to a modified independent level. C. Case management to assist with discharge planning and placement options. D. Nutrition to assist with nutritional needs. E. Rehabilitation nursing to assist in monitoring the patient's underlying medical conditions and to assist with any type of bowel or bladder management. 2. The patient's current medications and medical care will be continued. 3. The patient will be placed on standard fall precautions. 4. The patient's estimated length of stay is approximately 7-10 days. 5. We will discussed the patient during care team staff meeting this week and we will go ahead and replace his potassium while he is here and will follow up in the a.m. HISTORY AND PHYSICAL [id number] CHRISTEL HOUSE TRANSINT:[id number] Voice Confirmation ID: [id number] DOCUMENT ID: [id number] NATALYA notes whether there has been none or any medical/functional change since admission: - No change since prescreen. NATALYA attests patient continues to be appropriate for IRF: - Continues to be appropriate. ZELALEM MENON MD at 1028 CC: [id number] DICTATION DATE: 04/03/18 0839 MASTER YACHT: 04/03/18 0911 ADM IN [facility] [address] [id number]
--- NOTE | 2018-04-03 12:10 | NUR ---
Pt was admitted to rehab with a stage 2 pressure injury on his left buttock measuring 2cm x 2cm and another stage two pressure injury on his right buttock measuring 3cm x 3cm. The periwound skin is red/purple and slow to yumiko. Mepilex sacral dressing are being used for protection. Re-educated on turning/repositioning every 2 hours while in bed and shifting weight while up in chair hourly. Recommended: Continuing with mepilex dressings for protection and reminding pt to turn/reposition himself while in bed or up in wheelchair.
--- NOTE | 2018-04-03 13:20 | NUR ---
RESTING AT THIS TIME. UNCOOPERATIVE AND DIFFICULT TO DEAL WITH. REFUSED MEDS AT TIMES. REFUSING TO KEEP O2 ON.
[2018-04-03 14:02] VITALS: Ht 188 cm; Wt 80.3 kg
--- NOTE | 2018-04-03 15:51 | NUR ---
IN THERAPY AT THIS TIME. NOT COOPERATIVE. CM IS CALLING FAMILY.
--- NOTE | 2018-04-03 16:06 | NUR ---
SPOKE WITH PATIENT ABOUT DISCHARGE PLANS. PATIENT IS NONCOMPLIANT AND ARGUMENTATIVE TOWARDS ANYONE THAT TRYS TO SPEAK WITH HIM. HE STATES THAT EVERYONE IS OUT TO GET HIM.I ATTEMPTED TO EXPLAIN TO HIM WHAT THE PROCESS WAS FOR REHAB. HE DOES NOT WANT TO BE HERE AND WANTS TO GO HOME.HE TOLD ME HE WAS LEAVING TODAY. I TOLD HIM THAT I WOULD CALL HIS GRANDSON WILBER AND TELL HIM OF HIS WISHES. I SPOKE WITH WILBER AND HE IS GOING TO SPEAK WITH HIS MOTHER REGARDING DISCHARGE. WILL CONTINUE TO FOLLOW WITH PATIENT.
--- NOTE | 2018-04-03 16:36 | NUR ---
BLADDER TRAINING STARTED AND RANDOLPH TO BE DC'D IN AM 04/04/18 AT 0600.
--- NOTE | 2018-04-03 20:01 | NUR ---
AWAKE AND ALERT. RESPIRATIONS UNLABORED. NO DISTRESS NOTED. NO NEEDS VOICED. CALL LIGHT IN REACH.
[2018-04-03 21:37] VITALS: BP 109/64
--- NOTE | 2018-04-03 22:32 | NUR ---
PT CALLED AND STATED HE WANTED CATHETER OUT. I ATTEMPTED TO EDUCATED HIM ON CURRENT BLADDER TRAINING. PATENT BECAME AGIATED AND AGAIN STATED HE WANTED CATHETER OUT AND WANTED TO USE URINAL. NOTED SMALL AMOUNT OF BLOOD IN URINE AND URINE HAD LEAKED AROUND CATHETER. RANDOLPH CATH DC'D AND URINAL PROVIDED.
--- NOTE | 2018-04-03 23:46 | NUR ---
VOIDED 200 CC OF DIONNA URINE. WILL CONTINUE TO MONITOR OUTPUT.
--- NOTE | 2018-04-04 02:37 | NUR ---
ASSISTED TO BATHROOM AND VOIDING WITHOUT DIFFICULTY. RESPIRATIONS UNLABORED.
--- NOTE | 2018-04-04 05:04 | NUR ---
HAS BEEN AWAKE MOST OF THIS SHIFT. UP AND DOWN TO WHEELCHAIR. USES URINAL FREQUENTLY. STATED HE WANTED SALINE LOCK OUT. SALINE LOCK TO LEFT FOREARM DC'D WITH CANNULA INTACT. NO DISTRESS NOTED.
--- NOTE | 2018-04-04 05:39 | NUR ---
RESTLESS HOURS. UP AND DOWN NUMEROUS TIMES. HAS NOT SLEPT. STATES HE IS GOING HOME TODAY. SITTING IN WHEELCHAIR.
[2018-04-04 08:00] VITALS: BP 82/62
--- NOTE | 2018-04-04 08:10 | NUR ---
PT REFUSED ALL NEB TREATMENTS STATES HE IS GOING HOME THIS MORNING NO SOB NOTED AND CHARGE NURSE NOTIFIED
[2018-04-04] MEDS ORDERED: K-DUR20 MEQ PO (08:27)
--- NOTE | 2018-04-04 08:32 | NUR ---
PT UP IN WHEELCHAIR EATING BREAKFAST TOLERATING WELL
--- NOTE | 2018-04-04 09:00 | NUR ---
PT REFUSED ALL MEDS X 2 ATTEMPTS
--- NOTE | 2018-04-04 09:00 | NUR ---
ALARM WAIVER SIGNED.CL IN REACH.
--- NOTE | 2018-04-04 09:20 | NUR ---
PT THREATING TO LEAVE GOING DOWN THE BEJARANO IN WHEELCHAIR TRYING TO PULL FIRE ALARM PT REDIRECTED AND PUSHED BACK TO ROOM
--- NOTE | 2018-04-04 12:30 | NUR ---
PT REFUSED MEDS
--- NOTE | 2018-04-04 14:56 | NUR ---
PATIENT DISCHARGING HOME AND PATIENTS GRANDSON WHICH IS HIS POA TO TRANSPORT PATIENT HOME. PATIENT DECLINES ANY DME NEEDS. [facility] WILL PROVIDE THERAPY AT HOME. DR. DUFF 04/18/18 @ 2:30. PATIENT CHOICE FORM FOR HOME HEALTH AND [facility] FORMS SIGNED, COPIES GIVEN TO PATIENT AND FILED IN CHART.DISCHARGE INSTRUCTIONS WITH [facility] FAXED TO HOME HEALTH AND DR. DUFF.
--- NOTE | 2018-04-04 15:12 | NUR ---
PT DISCHARGED TO HOME WITH ASHER VIA WHEELCHAIR MEDS AND DISCHARGE SUMMARY REVIEWED WITH ASHER MOSHER NO QUESTIONS OR CONCERNS ALL MEDS CALLED TO [facility]
== END 2018-04-04 15:34 | disposition home or self-care (01) | DRG 91 ==
LOC: D.REHAB 16:14
PROVIDERS: ADMIT Emergency Medicine; ATTEND Emergency Medicine
DX: G72.89 Other specified myopathies (principal); I50.23 Acute on chronic systolic (congestive) heart failure; J96.01 Acute respiratory failure with hypoxia; N39.0 Urinary tract infection, site not specified; R18.8 Other ascites; N17.9 Acute kidney failure, unspecified; I42.9 Cardiomyopathy, unspecified; R13.12 Dysphagia, oropharyngeal phase; I11.0 Hypertensive heart disease with heart failure; I48.91 Unspecified atrial fibrillation; I25.10 Atherosclerotic heart disease of native coronary artery without angina pectoris; R41.0 Disorientation, unspecified; I95.9 Hypotension, unspecified